=== PATIENT | female | born 1940 | race Caucasian/White ===

== ENCOUNTER → 2018-08-19 | Outpatient (CLI) | payer MEDICARE, OTHER, SELFPAY ==
[2018-08-19 14:37] LABS: Anion Gap 8 (5-15); BUN 24 mg/dL (7-18); BUN/Creat Ratio 29.6 RATIO (10-20); Calcium,Total 9.4 mg/dL (8.5-10.1); Chloride 102 mmol/L (98-107); Cholesterol 239 mg/dL (200); Creatinine, Serum 0.81 mg/dL (0.55-1.02); EST Glomerular Filtration Rate 72 mL/min (>60); Est Glom Filt Rate - Afr Amer 87 mL/min (>60); Glucose 91 mg/dL (74-106); High Density Lipoprotein 66 mg/dL; Sodium Level 140 mmol/L (136-145); Triglycerides 153 mg/dL; Very Low Density Lipoprotein 31 mg/dL (5-40)
== END | disposition home or self-care (01) ==
LOC: MFPLAB 11:13
PROVIDERS: Family Provider Family Medicine; PCP Family Medicine; Referring Provider Family Medicine; Visit Provider Family Medicine
DX: Z00.00 Encounter for general adult medical examination without abnormal findings (principal); E78.5 Hyperlipidemia, unspecified
CPT/HCPCS: 36415; 80048; 80061

== ENCOUNTER → 2018-11-02 | Outpatient (CLI) | payer MEDICARE, OTHER, SELFPAY ==
--- NOTE | 2018-11-02 09:37 | BI_ITS ---
MAMMOGRAPHY - BILATERAL SCREENING REASON FOR EXAM: Female, 78 years old. Routine annual screening examination. PERTINENT HISTORY: Non-contributory. TECHNIQUE: Digital bilateral breast socorro (3D mammographic acquisition) in the CC and MLO projections. 2-D mediolateral oblique (MLO) and craniocaudad (CC) views of both breasts were obtained. CAD: Full Field Digital Mammography with Computer Added Detection was performed. COMPARISON: Comparison is made with prior EXAMINATION dated October 31, 2017. FINDINGS: Breast Composition: The breasts are extremely dense, which lowers the sensitivity of mammography. There are no dominant masses or suspicious calcifications. A tissue clip marker is seen in the upper slightly lateral aspect of the right breast. Microcalcifications are seen in the anterior portion of the right breast. No other significant abnormalities are identified. There has been no significant change since the prior study. BI/SCREEN MAMM (CAD) W/SOCORRO BILAT IMPRESSION: Stable bilateral screening mammogram. Yearly follow-up mammogram recommended. (A) ASSESSMENT CATEGORY: BIRADS Category 2: Benign. A letter regarding these results will be sent to the patient by the facility within 30 days. Approximately 10% of breast cancers are not detected by mammography. A normal mammogram should not delay biopsy of a clinically suspicious abnormality. [id number] Electronically Signed: Dejuan Salvador, at 12:53 EDT , Service support ,
== END | disposition home or self-care (01) ==
LOC: OPBI 09:33
PROVIDERS: Family Provider Family Medicine; PCP Family Medicine; Referring Provider Family Medicine; Visit Provider Family Medicine
DX: Z12.31 Encounter for screening mammogram for malignant neoplasm of breast (principal)
CPT/HCPCS: 77063; 77067

== ENCOUNTER → 2019-11-23 10:23 | Outpatient (CLI) | payer MEDICARE, OTHER, SELFPAY ==
--- NOTE | 2019-11-23 10:26 | BI_ITS ---
MAMMOGRAPHY - BILATERAL SCREENING REASON FOR EXAM: Female, 79 years old. Routine annual screening examination. PERTINENT HISTORY: Non-contributory. TECHNIQUE: Digital bilateral breast socorro (3D mammographic acquisition) in the CC and MLO projections. 2-D mediolateral oblique (MLO) and craniocaudad (CC) views of both breasts were obtained. CAD: Full Field Digital Mammography with Computer Added Detection was performed. COMPARISON: Comparison is made with prior study dated 11/02/2018 and 09/10/2011. FINDINGS: Breast Composition: The breasts are extremely dense, which lowers the sensitivity of mammography. There are no dominant masses or suspicious calcifications. A tissue clip marker is once again seen in the upper slightly lateral aspect of the right breast. Stable macrocalcifications seen in the retroareolar region of the right breast. No other significant abnormalities are identified. There has been no significant change since the prior study. BI/SCREEN MAMM (CAD) W/SOCORRO BILAT IMPRESSION: Stable bilateral screening mammogram. Yearly follow-up mammogram recommended. (A) ASSESSMENT CATEGORY: BIRADS Category 2: Benign. A letter regarding these results will be sent to the patient by the facility within 30 days. Approximately 10% of breast cancers are not detected by mammography. A normal mammogram should not delay biopsy of a clinically suspicious abnormality. [id number] Electronically Signed: Dejuan Salvador, at 12:29 EDT , Service support ,
== END ==
PROVIDERS: PCP Family Medicine; Referring Provider Family Medicine; Visit Provider Family Medicine
DX: Z12.31 Encounter for screening mammogram for malignant neoplasm of breast (principal)
CPT/HCPCS: 77063; 77067

== ENCOUNTER → 2020-03-01 10:18 | Outpatient (CLI) | payer MEDICARE, OTHER, SELFPAY ==
[2020-03-01 13:00] LABS: Anion Gap 4 (5-15); BUN 24 mg/dL (7-18); BUN/Creat Ratio 25.3 RATIO (10-20); Calcium,Total 9.7 mg/dL (8.5-10.1); Chloride 106 mmol/L (98-107); Cholesterol 249 mg/dL (200); Creatinine, Serum 0.95 mg/dL (0.55-1.02); EST Glomerular Filtration Rate 60 mL/min (>60); Est Glom Filt Rate - Afr Amer 73 mL/min (>60); Glucose 99 mg/dL (74-106); High Density Lipoprotein 77 mg/dL; Potassium 3.9 mmol/L (3.5-5.1); Sodium Level 139 mmol/L (136-145); Triglycerides 136 mg/dL; Very Low Density Lipoprotein 27 mg/dL (5-40)
== END ==
PROVIDERS: PCP Family Medicine; Referring Provider Family Medicine; Visit Provider Family Medicine
DX: I10 Essential (primary) hypertension (principal)
CPT/HCPCS: 36415; 80048; 80061

== ENCOUNTER → 2020-05-31 11:40 | Outpatient (CLI) | payer MEDICARE, OTHER, SELFPAY ==
[2020-05-31 15:40] LABS: Anion Gap 5 (5-15); BUN 24 mg/dL (7-18); BUN/Creat Ratio 24.9 RATIO (10-20); Calcium,Total 10.5 mg/dL (8.5-10.1); Chloride 102 mmol/L (98-107); Cholesterol 237 mg/dL (200); Creatinine, Serum 0.96 mg/dL (0.55-1.02); EST Glomerular Filtration Rate 59 mL/min (>60); Est Glom Filt Rate - Afr Amer 71 mL/min (>60); Glucose 98 mg/dL (74-106); High Density Lipoprotein 74 mg/dL; Potassium 3.7 mmol/L (3.5-5.1); Sodium Level 139 mmol/L (136-145); Triglycerides 107 mg/dL; Very Low Density Lipoprotein 21 mg/dL (5-40)
== END ==
PROVIDERS: PCP Family Medicine; Referring Provider Family Medicine; Visit Provider Family Medicine
DX: I10 Essential (primary) hypertension (principal)
CPT/HCPCS: 36415; 80048; 80061

== ENCOUNTER 2020-08-03 14:57 | Outpatient (RCR) | payer MEDICARE, OTHER, SELFPAY | END 2020-09-26 23:59 | LOC: IMMUN 14:57 | PROVIDERS: PCP Family Medicine; Referring Provider Family Medicine; Visit Provider Family Medicine | DX: Z23 Encounter for immunization (principal) | CPT/HCPCS: 0001A; 0002A; 91300 ==

== ENCOUNTER → 2020-12-04 10:31 | Outpatient (CLI) | payer MEDICARE, OTHER, SELFPAY ==
--- NOTE | 2020-12-04 10:34 | BI_ITS ---
MAMMOGRAPHY - BILATERAL SCREENING REASON FOR EXAM: Female, 80 years old. Routine annual screening examination. PERTINENT HISTORY: Non-contributory. Remote right stereotactic breast biopsy. TECHNIQUE: Digital bilateral breast socorro (3D mammographic acquisition) in the CC and MLO projections. 2-D mediolateral oblique (MLO) and craniocaudad (CC) views of both breasts were obtained. CAD: Full Field Digital Mammography with Computer Added Detection was performed. COMPARISON: Comparison is made with prior study dated 11/23/2019 and 11/02/2018. FINDINGS: Breast Composition: The breasts are extremely dense, which lowers the sensitivity of mammography. There are no dominant masses or suspicious calcifications. A tissue clip marker is once again seen in the upper slightly lateral aspect of the right breast. Stable macrocalcifications in the retroareolar region of the No other significant abnormalities are identified. There has been no significant change since the prior study. BI/SCRN MAMM (CAD)W/SOCORRO BILAT IMPRESSION: Stable bilateral screening mammogram. Yearly follow-up mammogram recommended. (A) ASSESSMENT CATEGORY: BIRADS Category 2: Benign. A letter regarding these results will be sent to the patient by the facility within 30 days. Approximately 10% of breast cancers are not detected by mammography. A normal mammogram should not delay biopsy of a clinically suspicious abnormality. [id number] Electronically Signed: Dejuan Salvador MD at 11:31 EDT , Service support ,
== END ==
PROVIDERS: PCP Family Medicine; Referring Provider Family Medicine; Visit Provider Family Medicine
DX: Z12.31 Encounter for screening mammogram for malignant neoplasm of breast (principal)
CPT/HCPCS: 77063; 77067

== ENCOUNTER 2021-03-01 07:06 | Day surgery (SDC) | payer MEDICARE, OTHER, SELFPAY ==
[2021-03-01 07:32] VITALS: BP 129/79; PULSE 84; RESP 18; TEMP 36.3; O2SAT 99; BMI 20.5
[2021-03-01] MEDS: Lactated Ringers 1,000 ML 15 ML IV (07:54)
--- NOTE | 2021-03-01 08:30 | COLBX_PTH ---
PATIENT: CRISTHIAN RIVERO LOC: EN U#:[id number] AGE/SX: 80/F ROOM: RE03/01/[address]: Dr. Italo Matias MD : 1940 BED: DIS: 03/01/2021 SPEC #: [id number] RECD: 03/01/21 11:30 STATUS: JAX MARTINEZ #: [id number] MALIK: 03/01/21 08:[address]: Italo Matias DEPT: SURGICAL PATHOLOGY RECD BY: Mirna Kelly ENTERED: 03/01/21 12:42 SP TYPE: COLON BX OTHR DR: Dr. Sergio Mari MD Tissues: A - Cecum, NOS B - Cecum, NOS Procedures: Surgery Specimen Level IV HEADER OPERATION: Colonoscopy (MAC) PRE-OP DIAGNOSIS: Colon polyps TISSUE SUBMITTED: A ? Ileocecal polyp biopsy and snare, B ? Cecal polyp MICROSCOPIC DIAGNOSIS A. Ileocecal polyp, biopsy: A fragment of colonic mucosa, no pathologic diagnosis. B. Cecal polyp, biopsy: Tubular adenoma. JED:marco antonio 03/02/2021 MICROSCOPIC DESCRIPTION Slides are reviewed. GROSS DESCRIPTION A - Received in fixative is one container labeled with the patient's name and designated ileocecal polyp biopsy and snare. The specimen consists of one irregular fragment of light herman soft tissue that measures 0.2 x 0.2 x 0.1 cm. The specimen is totally submitted in one cassette. B - Received in fixative is one container labeled with the patient's name and designated cecal polyp. The specimen consists of a herman-pink polyp measuring 0.5 x 0.5 x 0.3 cm. / JED:marco antonio 03/01/21 TC:1 CPT: 26936 x2
--- NOTE | 2021-03-01 09:19 | PCM.HP.BLA ---
History and Physical Date of Admission: 03/01/21 Date of Service: 02/16/21 MR#:[id number]:[id number]: CRISTHIAN RIVERO #:[id number]:1940 Provider:Edwin Davidson/Sex: 80/F [facility] Vital Signs 02/16/21 14:38 Height 5 ft 2 in Weight: 113 lb BMI 20.6 BP 172/91 H Blood Pressure Location Rt brachial Position Sitting Respiration 18 Intake Visit Reasons: CSCOPE, REPEAT 3 YRS Chief Complaint: c-scope Fruit Checker Required: No Is patient in pain?: No Allergies Antihistamines - Alkylamine Allergy (Mild, Verified 02/16/21 14:39) Other codeine Allergy (Mild, Verified 02/16/21 14:39) Other Medications calcium carbonate 600 mg calcium (1,500 mg) tablet 600 mg PO DAILY 02/16/21 [History Confirmed 02/16/21] ergocalciferol (vitamin D2) 50 mcg (2,000 unit) capsule 50 mcg PO DAILY 02/16/21 [History Confirmed 02/16/21] lisinopril 20 mg-hydrochlorothiazide 25 mg tablet tablet PO 02/16/21 [History Confirmed 02/16/21] vitamins A,C,P-rhql-riygbn 14,320 unit-226 mg-200 unit capsule 1 cap PO BID 02/16/21 [History Confirmed 02/16/21] PFSH Medical History (Updated 02/16/21 @ 16:[address] Italo Matias MD) Heart murmur Hemorrhoids HTN (hypertension) Surgical History (Updated 02/16/21 @ 14:30 by Deja Quinones) H/O eye surgery S/P hysterectomy S/P right breast biopsy Family History (Updated 02/16/21 @ 14:30 by Deja Quinones) Father Colon cancer Social History (Updated 02/16/21 @ 14:30 by Deja Quinones) Smoking Status: Never smoker alcohol intake: never HPI HPI HPI: CRISTHIAN RIVERO, is a 80 F who presents to the office today for need to schedule surveillance colonoscopy secondary to both a personal history of colonic polyps and a family history of colon cancer in her father. Patient is referred from Dr. Mari with [facility] physicians. Patient has had prior colonoscopy. The results of prior scope performed by Dr. Wagoner of the [facility] on 02/26/2016 were: 2 colon polyps with a 7 mm sessile polyp in the cecum and a 15 mm semipedunculated polyp of the ascending colon?pathology was tubular adenoma. Recommended interval for follow-up was 3 years, however, patient has had a very busy season of life with her 's dementia progressing during this time. She does state she completed a Cologuard test 2 years ago which came back unremarkable. Patient has no personal history of colon cancer, inflammatory bowel disease, or diverticulitis. They describe their bowel habits as normal. They have approximately movement per day and spend minimal time on the toilet without significant straining. She has not noticed any blood with bowel movements. As above, patient does have a family history of colon cancer in her father who was diagnosed with late?stage colon cancer age of 86 and ultimately succumbed to this diagnosis. At age 80, patient is exceptionally active; exercising daily on a rowing machine and with regular walks. She also mows her own yard. She states that she has even considered returning to work. From a surgical perspective, patient's only abdominal surgery was a hysterectomy in 1980. ROS General General: No weight change, appetite, fatigue, colon cancer, breast cancer or weakness HEENT HEENT: Yes eye surgery; No difficulty swallowing, eye injury, swollen glands or hoarseness Endo Endocrine: No thyroid disease, diabetes mellitus, thyroid cancer, Hair loss, heat intolerance or cold intolerance Skin Skin: No rash or changing moles Breast Breast: No left breast lump, right breast lump, nipple discharge, breast pain, abnormal mammogram, abnormal US or breast enlargement Musc Musculoskeletal: No back problems, arthritis, rheumatoid arthritis, gout or joint pain Cardio Cardiovascular: Yes murmur and high blood pressure; No pacemaker, heart disease, atrial fibrillation, heart attack, heart stent, palpitations, shortness of breat with exertion or chest pain Psych Psychiatric: No depression, anxiety or hearing voices Resp Respiratory: No shortness of breath, No sleep apnea, No cough, No COPD, No asthma, No emphysema and No wheezing Gastro Gastrointestinal: No abdominal pain, No nausea or vomiting, No diarrhea, No constipation, No blood in stool, No acid reflux, Yes hemorrhoids, No ulcers, No gallbladder problem and No black,tarry stools Shreyas Hematologic: No blood thinners, No blood disorders, No bleeding, No anemia and No blood clots Neuro Neurologic: No system reviewed and no additional complaints, except as documented, No as per HPI, No abnormal gait, No abnormal hearing, No abnormal movements, No abnormal speech, No behavioral changes, No burning sensations, No confusion, No convulsions, No disequilibrium, No dizziness, No localized weakness, No frequent falls, No headache(s), No lack of coordination, No loss of vision, No memory loss, No numbness, No other visual disturbances, No radicular pain, No restless legs, No sensory deficit, No syncope, No tingling, No tremor(s), No weakness and No other Exam Const General: cooperative, healthy appearing, no acute distress and well developed Resp Effort & Inspection: normal respiratory effort Auscultation: clear to auscultation bilaterally, no rales, no rhonchi and no wheezes Cardio Rate: regular rate Rhythm: regular rhythm Heart Sounds: murmur systolic early and III/ GI Inspection: non-distended and no scars Palpation: soft, no hernias, no masses and nontender Assessment and Plan Assessment and Plan (1) Colon polyps: Status: Acute Qualifiers: Colon polyp type: adenomatous Colon location: ascending Qualified Code(s): D12.2 - Benign neoplasm of ascending colon Comment: An 80-year-old female who underwent surveillance colonoscopy 5 years ago with finding of colon polyps. She knows these were the only polyps of the bilirubin found during her history of colonoscopies. She was due, however, for 3-year follow-up of a 15 mm tubular adenoma of the ascending colon, but due to family circumstances she was unable to accomplish this. She describes no changes to her bowel habits, but is eager to update her surveillance exam. She states it is her plan to live 89 years old and currently exhibits no signs of slowing down. Therefore, I find it reasonable to proceed with colonoscopy as requested. Patient does have a 3/6 systolic murmur, but she states this has been present since she was very young and it is never limited her activity in any way. Plan - Dr. Italo Matias MD: Plan will be to complete colonoscopy on 03/01/2021 under local MAC. Pre-procedure prep discussed and paper instructions provided. Patient is also made aware that she will need to have a rear load truck driver with her the day of the procedure. (2) Family history of colon cancer in father: Status: Acute Comment: This is an octogenarian who has a family history of colon cancer in her father, who is also an octogenarian when diagnosed. Patient requesting surveillance colonoscopy for this history as well as her personal history of colon polyps. Plan - Dr. Italo Matias MD: Plan will be to complete colonoscopy on 03/01/2021 under local MAC. Pre-procedure prep discussed and paper instructions provided. Patient is also made aware that she will need to have a rear load truck driver with her the day of the procedure. I have re-examined the patient. There are no clinical changes since date of exam. Patient states that she continued her bowel prep all night long but the output has now been clear. She is eager to be under with the procedure. We will proceed with colonoscopy under local MAC as planned.
[2021-03-01 10:09] VITALS: BP 121/71; BP 129/79; PULSE 65; RESP 16; TEMP 36.2; O2SAT 98
[2021-03-01 10:15] VITALS: BP 129/79; BP 136/74; PULSE 64; RESP 16; O2SAT 98
--- NOTE | 2021-03-01 10:15 | OP.COLON_ITS ---
Patient Name: Cassie Ochoa Procedure Date: 03/01/2021 9:08 AM Date of : 1940 Age: 80 Procedure: Colonoscopy Indications: High risk colon cancer surveillance: Personal history of adenoma (10 mm or greater in size) Providers: Italo Matias MD Medicines: Monitored Anesthesia Care Patient Profile: Last Colonoscopy: 5 years ago. This is an 80 year old female. Complications: No immediate complications. Estimated blood loss: Minimal. Procedure: Pre-Anesthesia Assessment: - The anesthesia plan was to use moderate sedation/analgesia (conscious sedation). - The heart rate, respiratory rate, oxygen saturations, blood pressure, adequacy of pulmonary ventilation, and response to care were monitored throughout the procedure. After I obtained informed consent, the scope was passed under direct vision. Throughout the procedure, the patient's blood pressure, pulse, and oxygen saturations were monitored continuously. The Colonoscope was introduced through the anus and advanced to the cecum, identified by the ileocecal valve. The colonoscopy was performed without difficulty. The patient tolerated the procedure well. The quality of the bowel preparation was adequate to identify polyps. Scope In: 9:24:39 AM Scope Withdrawal Time 0 hours 25 minutes 23 seconds Scope Out: 10:04:51 AM Total Procedure Duration Time 0 hours 40 minutes 12 seconds Findings: Two semi-pedunculated polyps were found in the cecum. The polyps were 2 to 10 mm in size. These polyps were removed with a hot snare. Resection was complete, and retrieval was complete. Estimated blood loss was minimal. A few medium-mouthed diverticula were found in the distal sigmoid colon. No biopsies or other specimens were collected for this exam. Internal hemorrhoids were found during retroflexion. The hemorrhoids were Grade I (internal hemorrhoids that do not prolapse). No biopsies or other specimens were collected for this exam. Impression: - Two 2 to 10 mm polyps in the cecum, removed with a hot snare. Resected and retrieved. - Diverticulosis in the distal sigmoid colon. No specimens collected. - Internal hemorrhoids. No specimens collected. Recommendation: - Discharge patient to home (via wheelchair). - Resume regular diet today. - Continue present medications. - Await pathology results. - Repeat colonoscopy is recommended. The colonoscopy date will be determined after pathology results from today's exam become available for review. Procedure Code(s): --- Professional --- 14245, Colonoscopy, flexible; with removal of tumor(s), polyp(s), or other lesion(s) by snare technique Diagnosis Code(s): --- Professional --- Z86.010, Personal history of colonic polyps D12.0, Benign neoplasm of cecum K64.0, First degree hemorrhoids K57.30, Diverticulosis of large intestine without perforation or abscess without bleeding CPT copyright 2017 [employer]. All rights reserved. The codes documented in this report are preliminary and upon automotive wholesale parts advisor review may be revised to meet current compliance requirements. Italo Matias MD 03/01/2021 10:15:28 AM This report has been signed electronically. Number of Addenda: 0 Note Initiated On: 03/01/2021 9:08 AM
--- NOTE | 2021-03-01 10:16 | OP.CCLET_ITS ---
03/01/2021 Sergio Mari MD [address] [id number] Re : Colonoscopy procedure for Cassie Ochoa Dear Dr. Mari This procedure was performed on February. My impressions and recommendations are as follows: Impressions : - Two 2 to 10 mm polyps in the cecum, removed with a hot snare. Resected and retrieved. - Diverticulosis in the distal sigmoid colon. No specimens collected. - Internal hemorrhoids. No specimens collected. Recommendations : - Discharge patient to home (via wheelchair). - Resume regular diet today. - Continue present medications. - Await pathology results. - Repeat colonoscopy is recommended. The colonoscopy date will be determined after pathology results from today's exam become available for review. My findings are described in the full procedure note, which is enclosed. If I can be of further assistance, please feel free to contact me at Doctor phone number(s): , Work: . Sincerely, Iatlo Matias MD 03/01/2021 10:15:28 AM This report has been signed electronically.
[2021-03-01 10:23] VITALS: BP 129/79; BP 138/66; PULSE 56; RESP 16; O2SAT 99
[2021-03-01 10:24] VITALS: BP 129/79; BP 152/68; PULSE 62; RESP 16; TEMP 36.1; O2SAT 99
[2021-03-01 11:19] VITALS: BP 129/79
== END 2021-03-01 11:20 ==
LOC: EN 07:09 → AC 07:09
PROVIDERS: PCP Family Medicine; Referring Provider Family Medicine; Visit Provider Surgery
PROC: 0DJD8ZZ Inspection of Lower Intestinal Tract, Via Natural or Artificial Opening Endoscopic (ICD-10-PCS; CPT 45378; principal; 2021-03-01 08:25)
DX: Z12.11 Encounter for screening for malignant neoplasm of colon (principal); D12.0 Benign neoplasm of cecum; K57.30 Diverticulosis of large intestine without perforation or abscess without bleeding; K64.0 First degree hemorrhoids; I10 Essential (primary) hypertension; Z80.0 Family history of malignant neoplasm of digestive organs; Z86.010 Personal history of colon polyps; Z79.899 Other long term (current) drug therapy
CPT/HCPCS: 45385; 88305; J7120; J2405

== ENCOUNTER 2021-08-08 10:08 | Outpatient (CLI) | payer MEDICARE, OTHER, SELFPAY ==
[2021-08-08 12:11] LABS: ALB/GLOB Ratio 0.9 RATIO (0.9-2.4); AST(SGOT) 15 U/L (15-37); Alanine Aminotransfer ALT/SGPT 25 U/L (13-56); Albumin, Serum 3.6 g/dL (3.2-5.0); Alkaline Phosphatase 105 U/L (45-117); Anion Gap 7 (5-15); BUN 26 mg/dL (7-18); BUN/Creat Ratio 28.7 RATIO (10-20); Calcium,Total 10.9 mg/dL (8.5-10.1); Chloride 101 mmol/L (98-107); Cholesterol 242 mg/dL (200); Creatinine, Serum 0.91 mg/dL (0.55-1.02); EST Glomerular Filtration Rate 63 mL/min (>60); Est Glom Filt Rate - Afr Amer 76 mL/min (>60); Glucose 102 mg/dL (74-106); High Density Lipoprotein 80 mg/dL; Potassium 3.8 mmol/L (3.5-5.1); Protein, Total 7.6 g/dL (6.4-8.2); Sodium Level 136 mmol/L (136-145); Triglycerides 154 mg/dL; Very Low Density Lipoprotein 31 mg/dL (5-40)
== END 2021-08-08 23:59 | disposition home or self-care (01) ==
LOC: MFPLAB 10:12
PROVIDERS: PCP Family Medicine; Referring Provider Family Medicine; Visit Provider Family Medicine
DX: E78.5 Hyperlipidemia, unspecified (principal)
CPT/HCPCS: 36415; 80053; 80061

== ENCOUNTER → 2021-12-21 | Outpatient (CLI) | payer MEDICARE, OTHER, SELFPAY ==
--- NOTE | 2021-12-21 09:20 | BI_ITS ---
MAMMOGRAPHY - BILATERAL SCREENING REASON FOR EXAM: Female, 81 years old. Routine annual screening examination. PERTINENT HISTORY: Non-contributory. History of prior right medial breast biopsies. TECHNIQUE: Digital bilateral breast socorro (3D mammographic acquisition) in the CC and MLO projections. 2-D mediolateral oblique (MLO) and craniocaudad (CC) views of both breasts were obtained. CAD: Full Field Digital Mammography with Computer Added Detection was performed. COMPARISON: Comparison is made with prior study dated 12/04/2020 and 11/23/2019. FINDINGS: Breast Composition: The breasts are extremely dense, which lowers the sensitivity of mammography. I suspect a 1.8 cm x 2.7 cm well-defined nodule in the upper lateral aspect of the left breast. Correlation with ultrasound is recommended. A tissue clip marker is once again seen in the upper slightly lateral aspect of the right breast. Stable appearance of the calcifications bilaterally. No focal cluster is seen. No other significant abnormalities are identified. BI/SCRN MAMM (CAD)W/SOCORRO BILAT IMPRESSION: Findings suggest 1.8 cm x 2.7 cm well-defined nodule in the upper lateral aspect of the left breast. Correlation with ultrasound is recommended. ASSESSMENT CATEGORY: BIRADS Category 0: Incomplete. Need additional imaging evaluation. A letter regarding these results will be sent to the patient by the facility within 30 days. Approximately 10% of breast cancers are not detected by mammography. A normal mammogram should not delay biopsy of a clinically suspicious abnormality. [id number] Electronically Signed: Dejuan Salvador MD at 10:50 EDT ,
== END | disposition home or self-care (01) ==
LOC: OPBI 09:18
PROVIDERS: PCP Family Medicine; Visit Provider Family Medicine
DX: Z12.31 Encounter for screening mammogram for malignant neoplasm of breast (principal)
CPT/HCPCS: 77063; 77067

== ENCOUNTER → 2021-12-31 | Outpatient (CLI) | payer MEDICARE, OTHER, SELFPAY ==
--- NOTE | 2021-12-31 10:09 | US_ITS ---
STUDY: ULTRASOUND BREAST - LEFT REASON FOR EXAM: Female, 81 years old. Abnormal screening mammogram. TECHNIQUE: Axial and longitudinal images of the LEFT breast were performed with a high resolution ultrasound transducer. # OF IMAGES: 28 COMPARISON: Comparison is made with prior mammogram dated 12/21/2021. FINDINGS: LEFT Breast: The mammographic abnormality corresponds to a lobulated 1.6 cm x 2.1 cm x 1.2 cm hypoechoic nodule at the 2 o''clock position of the breast at 10 cm from nipple. Increased vascularity is seen. Biopsy recommended. US/Breast Limited Unilateral IMPRESSION: Lobulated hypoechoic nodule at the 2 o''clock position of the breast at 10 cm from the nipple. Increased vascularity. Biopsy recommended. ASSESSMENT CATEGORY: BIRADS Category 4: Suspicious - Biopsy Should Be Considered. A letter regarding these results will be sent to the patient by the facility within 30 days. Electronically Signed: Dejuan Salvador MD at 11:24 EDT ,
== END | disposition home or self-care (01) ==
LOC: OPUS 10:08
PROVIDERS: PCP Family Medicine; Visit Provider Family Medicine
DX: R92.8 Other abnormal and inconclusive findings on diagnostic imaging of breast (principal)
CPT/HCPCS: 76642

== ENCOUNTER → 2022-01-03 | Outpatient (CLI) | payer MEDICARE, OTHER, SELFPAY ==
--- NOTE | 2022-01-03 | BRBX_PTH ---
PATIENT: CRISTHIAN RIVERO LOC: [facility] U#:[id number] AGE/SX: 81/F ROOM: RE01/03/[address]: Dr. Lali Gong MD : 1940 BED: DIS: 01/03/2022 SPEC #: [id number] RECD: 01/03/22 13:08 STATUS: JAX REWilliam #: [id number] MALIK: 01/03/22 00:[address]: Lali Gong DEPT: SURGICAL PATHOLOGY RECD BY: Bo Caicedo ENTERED: 01/03/22 13:09 SP TYPE: BREAST BX OTHR DR: Dr. Sergio Mari MD Tissues: A - Left breast, NOS B - Axillary lymph node, NOS Procedures: Surgery Specimen Level IV HEADER OPERATION: Left breast biopsy PRE-OP DIAGNOSIS: Left breast mass TISSUE SUBMITTED: A ? Left breast tissue 2 o?clock, 10 cm from nipple, B ? Left axillary node MICROSCOPIC DIAGNOSIS A. Left breast at 2 o?clock, needle core biopsy: Collagenized tissue. Rare benign ductal epithelium is present. B. Left axillary lymph node, core biopsy: Metastatic carcinoma consistent with breast primary. See comment. AM:marco antonio 01/04/2022 COMMENT B. Immunohistochemistry ([id number]) supports the above diagnosis and is consistent with metastatic ductal carcinoma of breast origin. Case has been reviewed in consultation with Dr. Fernandez who concurs with the above diagnosis. IDC:JED MICROSCOPIC DESCRIPTION Slides are reviewed. GROSS DESCRIPTION A - Received in fixative is one container labeled with the patient's name and designated left breast. The specimen consists of multiple elongated fragments of herman-yellow fibroadipose tissue that in aggregate measure 1.5 x 0.4 x 0.1 cm. The entire specimen is submitted in one cassette. B - Received in fixative is one container labeled with the patient's name and designated left axillary node. The specimen consists of multiple elongated fragments of adipose tissue that in aggregate measure 1.5 x 0.3 x 0.1 cm. The entire specimen is submitted in one cassette. / JED:marco antonio 01/03/2022 TC:0 CPT: 45798 x2
--- NOTE | 2022-01-03 | IMM_PTH ---
PATIENT: CRISTHIAN RIVERO LOC: [facility] U#:[id number] AGE/SX: 81/F ROOM: RE01/03/[address]: Dr. Lali Gong MD : 1940 BED: DIS: 01/03/2022 SPEC #: [id number] RECD: 01/04/22 13:36 STATUS: JAX REQ #: [id number] MALIK: 01/03/22 00:[address]: Lali Gong DEPT: IMMUNOHISTOCHEMISTRY RECD BY: Marium Bowles ENTERED: 01/04/22 13:37 SP TYPE: IMMUNO OTHR DR: Dr. Sergio Mari MD Tissues: B - Axillary lymph node, NOS Procedures: CK20 (add) CK7 (add) CK8 (add) E-CAD (add) HER2 ELTON (add) KI-67 (add) MAMM (add) P53 (add) MS (add) Vimentin (add) Pankeratin (add) GATA3 (add) ER (initial) S-100 (add) PHYSICIAN & [address] [address] SPECIMEN INFORMATION: Tissue Source: B ? Left axillary node Clinical Info: Left breast mass Specimen Number: [id number] CPT code: 52486, 79651 x13 METHODOLOGY: Deparaffinized sections of prefer/formalin-fixed tissue or PAP/DQ stained slides are incubated with monoclonal/polyclonal antibodies/oligonucleotide probes. Localization is made via biotin free immunoperoxidase method. Appropriate controls are performed and reacted as expected. Results on target cell population are indicated in the following table: RESULTS: ANTIBODY / CLONE RESULT Block B E-Cad (ECH-6) positive Mammaglobin (31A5) positive GATA3 (L50-823) positive AE1-3 (AE1/AE3/PCK26) positive CK7 (OV-TL12/30) positive CK8 (27yypgM25) positive CK20 (KS20.8) negative Vimentin (V9) negative S-100 (4C4.9) negative P53 (DO-7) negative Ki-67 (30-9) positive, 75% MORPHOMETRIC ANALYSIS ER (clone 6F11) <1%, dim staining MS (clone 16/1E2) 0% Her-2Neu (clone CB11) 2-3+ The prognostic test for HER2 is performed on formalin-fixed paraffin embedded tissue. A 3+ (positive) staining pattern is defined as intense, homogeneous, complete, circumferential membranous staining in >10% of contiguous tumor cells. A similar weak (2+) staining pattern is interpreted as equivocal. KAREN follow-up testing is recommended for all equivocal cases. Positivity/negativity for ER/MS is reported if > or < 1% of the tumor cells are immuno- reactive, respectively. The ASCO/CAP criteria is used for scoring. Reference: Journal of Clinical Oncology, 2013; 31:9375-5300 & 2010; 16:1054-7477. Duration of fixation: 8 Hrs; Sample Adequate: Yes. These assays have not been validated on decalcified tissues. Results should be interpreted with caution given the likelihood of false negativity on decalcified specimens. These tests were developed and their performance characteristics determined by [facility]. They may not have been cleared or approved by the U.S. Food and Drug Administration. The FDA has determined that such clearance or approval is not necessary. The above immunohistochemical/dualISH markers are ordered and reviewed by the Pathologist. INTERPRETATION: B. Left axillary node, biopsy: Consistent with metastatic ductal carcinoma of breast origin. Positive for estrogen receptors (favorable prognostic indicator). Negative for progesterone receptors (unfavorable prognostic indicator). Positive for overexpression of IES5jlo. AM:marco antonio 01/07/2022
== END | disposition home or self-care (01) ==
LOC: LABSPEC 11:35
PROVIDERS: PCP Family Medicine; Referring Provider Surgery; Visit Provider Surgery
DX: N63.20 Unspecified lump in the left breast, unspecified quadrant (principal)
CPT/HCPCS: 88305; 88341; 88342

== ENCOUNTER → 2022-01-16 | Outpatient (CLI) | payer MEDICARE, OTHER, SELFPAY ==
--- NOTE | 2022-01-16 | IMM_PTH ---
PATIENT: CRISTHIAN RIVERO LOC: [facility] U#:[id number] AGE/SX: 81/F ROOM: RE01/16/[address]: Dr. Chris Buitrago MD : 1940 BED: DIS: 01/16/2022 SPEC #: [id number] RECD: 01/18/22 12:41 STATUS: JAX REQ #: [id number] MALIK: 01/16/22 00:[address]: Chris Buitrago DEPT: IMMUNOHISTOCHEMISTRY RECD BY: Marium Bowles ENTERED: 01/18/22 12:43 SP TYPE: IMMUNO OTHR DR: Dr. Sergio Mari MD Tissues: Left breast, NOS Procedures: CALPONIN-1 (add) CK5-6 (add) CK8 (add) E-CAD (add) HER2 ELTON (add) KI-67 (add) P53 (add) CT (add) P40 (add) ER (initial) PHYSICIAN & INSTITUTION [address] [address] SPECIMEN INFORMATION: Tissue Source: Left breast Clinical Info: Left breast mass Specimen Number: [id number] CPT code: 70296, 59823 x6, 65073 x3 METHODOLOGY: Deparaffinized sections of prefer/formalin-fixed tissue or PAP/DQ stained slides are incubated with monoclonal/polyclonal antibodies/oligonucleotide probes. Localization is made via biotin free immunoperoxidase method. Appropriate controls are performed and reacted as expected. Results on target cell population are indicated in the following table: RESULTS: ANTIBODY / CLONE RESULT E-Cad (ECH-6) positive CK8 (16mqwzB77) positive Calponin-1 (BV344X) negative CK5-6 (D5 & 1684) positive, focal P40 (BC28) negative P53 (DO-7) negative Ki-67 (30-9) positive, moderate (~60%) MORPHOMETRIC ANALYSIS ER (clone 6F11) 0% CT (clone 16/1E2) 0% Her-2Neu (clone CB11) 3+ The prognostic test for HER2 is performed on formalin-fixed paraffin embedded tissue. A 3+ (positive) staining pattern is defined as intense, homogeneous, complete, circumferential membranous staining in >10% of contiguous tumor cells. A similar weak (2+) staining pattern is interpreted as equivocal. KAREN follow-up testing is recommended for all equivocal cases. Positivity/negativity for ER/CT is reported if > or < 1% of the tumor cells are immuno- reactive, respectively. The ASCO/CAP criteria is used for scoring. Reference: Journal of Clinical Oncology, 2013; 31:8278-4298 & 2010; 16:0099-4421. Duration of fixation: 29.5 Hrs; Sample Adequate: Yes. These assays have not been validated on decalcified tissues. Results should be interpreted with caution given the likelihood of false negativity on decalcified specimens. These tests were developed and their performance characteristics determined by [facility]. They may not have been cleared or approved by the U.S. Food and Drug Administration. The FDA has determined that such clearance or approval is not necessary. The above immunohistochemical/dualISH markers are ordered and reviewed by the Pathologist. INTERPRETATION: Left breast mass, core biopsy: Invasive ductal carcinoma, nuclear grade 2-3/3. Negative for estrogen receptors (unfavorable prognostic indicator). Negative for progesterone receptors (unfavorable prognostic indicator). Positive for overexpression of BSI8obj. SJ:marco antonio 01/21/2022
--- NOTE | 2022-01-16 14:40 | BRBX_PTH ---
PATIENT: CRISTHIAN RIVERO LOC: [facility] U#:[id number] AGE/SX: 81/F ROOM: RE01/16/[address]: Dr. Chris Buitrago MD : 1940 BED: DIS: 01/16/2022 SPEC #: [id number] RECD: 01/16/22 15:57 STATUS: JAX REWilliam #: [id number] MALIK: 01/16/22 14:[address]: Chris Buitrago DEPT: SURGICAL PATHOLOGY RECD BY: Mirna Kelly ENTERED: 01/17/22 08:17 SP TYPE: BREAST BX OTHR DR: Dr. Sergio Mari MD Tissues: Left breast, NOS Procedures: Surgery Specimen Level IV HEADER OPERATION: Left breast biopsy PRE-OP DIAGNOSIS: Left breast mass TISSUE SUBMITTED: Left breast tissue MICROSCOPIC DIAGNOSIS Left breast mass, core biopsy: Invasive ductal carcinoma, nuclear grade 2-3/3 (0.9 cm in greatest length). See comment. JED:marco antonio 01/18/2022 COMMENT Immunohistochemistry ([id number]) supports the above diagnosis. ER/MS/Vhj0fkj studies are being performed on sections of tumor and the results from this study will be reported separately ([id number]). Please make reference to previous specimen ([id number]), left breast at 2 o?clock, needle core biopsy with diagnosis of ?collagenized tissue? and left axillary lymph node, core biopsy with diagnosis of ?metastatic carcinoma consistent with breast primary.? Case has been reviewed in consultation with Dr. Carty who concurs with the above diagnosis. IDC:AM MICROSCOPIC DESCRIPTION Slides are reviewed. GROSS DESCRIPTION Received in fixative is one container labeled with the patient's name and designated left breast. The specimen consists of multiple elongated fragments of herman-yellow fibroadipose tissue that in aggregate measure 1.5 x 0.5 x 0.1 cm. The entire specimen is submitted in one cassette. / JED:marco antonio 01/17/2022 TC:0 CPT: 35562
== END | disposition home or self-care (01) ==
LOC: LABSPEC 16:02
PROVIDERS: PCP Family Medicine; Referring Provider Surgery; Visit Provider Surgery
DX: N63.20 Unspecified lump in the left breast, unspecified quadrant (principal)
CPT/HCPCS: 88305; 88341; 88342

== ENCOUNTER → 2022-01-23 | Outpatient (CLI) | payer MEDICARE, OTHER, SELFPAY ==
--- NOTE | 2022-01-23 09:23 | MRI_ITS ---
STUDY: BILATERAL BREAST MR WITHOUT AND WITH CONTRAST REASON FOR EXAM: Female, 81 years old. Evaluation of left breast cancer. History of right breast biopsies. TECHNIQUE: Multi-sequence multi-echo imaging of both breasts was performed with a dedicated breast coil. T1-weighted and T2-weighted images were performed before the administration of contrast. T1-weighted images were also performed after the intravenous administration of 10 cc of Clariscan contrast. COMPARISON: Bilateral mammogram dated 12/21/2021, unilateral left mammogram dated 12/31/2021 and left breast ultrasound dated 12/31/2021. FINDINGS: RIGHT BREAST: The breast tissue is heterogeneously dense with no background enhancement. There are no abnormal enhancing masses or areas of non-mass enhancement in the right breast. LEFT BREAST: The breast tissue is heterogeneously dense with no background enhancement. Ovoid enhancing mass at the 2 o''clock position of the left breast 10 cm from the nipple corresponding to the ultrasonographic findings. Slight increased vascularity in the lateral aspect of the left breast. There are no enlarged or abnormal lymph nodes. There is no abnormality in the visualized regions of the chest or liver. MRI/Breast Bilateral W/O and W IMPRESSION: Solitary enhancing lobular slightly irregular mass in the left breast corresponding to the ultrasonographic findings. No adenopathy. CATEGORY: BIRADS Category 6: Known Biopsy-Proven Malignancy - Appropriate Action Should Be Taken. A letter regarding these results will be sent to the patient by the facility within 30 days. Electronically Signed: Ciaran Merritt, at 14:00 EDT ,
[2022-01-23 10:15] LABS: CREATININE FINGERSTICK < 0.9 mg/dL (0.55-1.02); EGFR FINGERSTICK > 60.0000 mL/min (>60)
== END | disposition home or self-care (01) ==
LOC: MRI 09:23
PROVIDERS: PCP Family Medicine; Visit Provider Surgery
DX: C50.912 Malignant neoplasm of unspecified site of left female breast (principal)
CPT/HCPCS: 77049; A9575; A4216; C8908

== ENCOUNTER → 2022-02-01 | Outpatient (CLI) | payer MEDICARE, OTHER, SELFPAY ==
--- NOTE | 2022-02-01 06:31 | CT_ITS ---
STUDY: CT CHEST T ABDOMEN WITH CONTRAST REASON FOR EXAM: Female, 81 years old. STAGING/IV ONLY. Left breast lump. RADIATION DOSAGE (If Supplied By Facility): CTDIvol = ( ) mGy, DLP = ( ) mGycm TECHNIQUE: Transaxial imaging was performed following intravenous administration of IV 100mL Isovue-300. Individualized dose optimization techniques were used for this CT. COMPARISON: No relevant priors. FINDINGS: CHEST There is a 1.2 cm x 1.8 cm soft tissue nodule in the upper lateral aspect of the left breast. A tissue clip marker is seen within it. There is also some calcification in the right breast. There is an 8.4 mm linear nodular density which abuts the pleural surface in the lateral posterior aspect of the right lung apex. This may represent a focal scar. Incidental note is made of an azygos lobe. There is no demonstrated pleural abnormality. There are calcifications of the coronary arteries. Normal mediastinum. Normal hilar regions. Normal unenhanced pulmonary arteries. There is atherosclerotic calcification of the aortic arch with tortuosity and elongation of the aortic arch and descending thoracic aorta. There are multi-level degenerative changes of the thoracic spine. Increased kyphosis. There is no demonstrated abnormality of the visualized upper abdomen. ABDOMEN Subcentimeter cyst in the posterior dome of the right lobe of the liver. Normal gallbladder and extrahepatic biliary system. Normal spleen. Normal pancreas. Normal bilateral adrenal glands. 8.6 mm cyst in the lower pole of the right kidney. Normal left kidney. There is a small hiatal hernia. Normal small intestine. Normal colon. The appendix is visualized and appears normal. There is diffuse atherosclerotic calcification of the abdominal aorta, without a demonstrated aneurysm. Normal inferior vena cava. Normal retroperitoneum. Normal abdominal wall. There are diffuse degenerative changes of the visualized lumbar spine. Dextroscoliosis. Grade 1 anterolisthesis of L4 on L5 with facet joint osteoarthritis. CT/CT Chest AND Abd W/ Contrast IMPRESSION: Left breast nodule. 8.4 mm linear nodular density in the posterolateral aspect of the right lung apex. This most likely represents a focal scar. Electronically Signed: Dejuan Salvador MD at 15:02 EDT ,
[2022-02-01 07:05] LABS: CREATININE FINGERSTICK < 0.9 mg/dL (0.55-1.02); EGFR FINGERSTICK > 60.0000 mL/min (>60)
== END | disposition home or self-care (01) ==
LOC: CT 06:28
PROVIDERS: PCP Family Medicine; Referring Provider Internal Medicine Medical Oncology; Visit Provider Internal Medicine Medical Oncology
DX: C77.3 Secondary and unspecified malignant neoplasm of axilla and upper limb lymph nodes (principal); C50.912 Malignant neoplasm of unspecified site of left female breast
CPT/HCPCS: 71260; 74160; Q9967

== ENCOUNTER → 2022-02-04 | Outpatient (CLI) | payer MEDICARE, OTHER, SELFPAY ==
--- NOTE | 2022-02-04 08:14 | ECHODONC_ITS ---
Reason For Study: Pre Chemo Procedure This was a 2D Doppler, Color Flow transthoracic echocardiogram. Myocardial strain analysis was performed in this exam to aid in the assessment of cardiac function. The study was technically difficult. Exam performed in department. Left Ventricle Normal LV size. Left ventricular systolic function is normal. The estimated ejection fraction is 65 %. The global longitudinal strain = -15% (borderline). Diastolic function is indeterminate. No regional wall motion abnormalities noted. Right Ventricle Normal RV size. Normal systolic function. Atria Normal left atrium. Normal right atrium. No doppler evidence for ASD. Mitral Valve There is no mitral annular calcification. Mild diffuse mitral valve thickening. Trivial mitral valve insufficiency. Tricuspid Valve Normal tricuspid valve. Trivial tricuspid valve insufficiency. Unable to estimate RV systolic pressure due to insufficient tricuspid regurgitant envelope. Aortic Valve Trisinus/trileaflet aortic valve. Mild diffuse aortic valve thickening. Moderate focal aortic valve calcification. 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 Pulmonic Valve The pulmonic valve is not well visualized. Great Vessels Normal sized aortic root. Calcified aortic root. Pericardium/Pleural No pericardial effusion. MMode/2D Measurements & Calculations LVIDd: 3.9 cm IVSd: 1.1 cm LVOT diam: 2.0 cm LVIDs: 2.3 cm LVPWd: 1.1 cm LVOT area: 3.1 cm2 RVDd: 2.7 cm FS: 42.2 % Ao root diam: 3.7 cm LAV(MOD-sp4): 30.6 ml Aortic Valve Planimetry: 0.68 cm2 ACS: 0.62 cm LA dimension: 3.3 cm LA A4 area: 13.1 cm2 RA A4 area: 11.7 cm2 Time Measurements MV dec time: 0.25 sec Doppler Measurements & Calculations MV E max guillermo: 59.2 cm/sec Lat Peak E' Guillermo: 6.0 cm/sec Med Peak E' Guillermo: 3.9 cm/sec MV A max guillermo: 112.0 cm/sec E/E' lat: 9.8 E/E' med: 15.2 MV E/A: 0.53 MV V2 max: 121.2 cm/sec MV P1/2t max guillermo: 75.2 cm/sec Ao V2 max: 303.4 cm/sec MV max P.9 mmHg MV P1/2t: 75.9 msec Ao max P.8 mmHg MV V2 mean: 57.8 cm/sec Ao V2 mean: 200.9 cm/sec MV mean P.6 mmHg MV dec slope: 290.2 cm/sec2 Ao mean P.5 mmHg MV V2 VTI: 25.1 cm MVA(P1/2t): 2.9 cm2 Ao V2 VTI: 60.8 cm MVA(VTI): 1.5 cm2 PEACE(I,D): 0.64 cm2 PEACE(V,D): 0.66 cm2 LV V1 max: 64.4 cm/sec SV(LVOT): 38.7 ml PA V2 max: 88.5 cm/sec LV V1 max P.7 mmHg LV V1 mean P.88 mmHg LV V1 mean: 43.2 cm/sec LV V1 VTI: 12.5 cm ECHO/ONC Echo Complete Interpretation Summary Left ventricular systolic function is normal. The estimated ejection fraction is 65 %. The global longitudinal strain = -15% (borderline). Mild diffuse mitral valve thickening. Trivial mitral valve insufficiency. Trivial tricuspid valve insufficiency. 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 Calcified aortic root. Unable to estimate RV systolic pressure due to insufficient tricuspid regurgita nt envelope. Diastolic function is indeterminate. Ordering Physician: Sang Smith Referring Physician: Sergio Mari Performed By: Andrzej Doshi RCS
== END | disposition home or self-care (01) ==
LOC: CVS 08:13
PROVIDERS: PCP Family Medicine; Referring Provider Internal Medicine Medical Oncology; Visit Provider Internal Medicine Medical Oncology
DX: Z01.818 Encounter for other preprocedural examination (principal); C77.3 Secondary and unspecified malignant neoplasm of axilla and upper limb lymph nodes; C50.912 Malignant neoplasm of unspecified site of left female breast
CPT/HCPCS: 93306; 93356

== ENCOUNTER 2022-02-07 10:28 | Day surgery (SDC) | payer MEDICARE, OTHER, SELFPAY ==
--- NOTE | 2022-02-05 12:21 | EKG12_ITS ---
Test Reason : PREOP Blood Pressure : / mmHG Vent. Rate : 083 BPM Atrial Rate : 083 BPM P-R Int : 114 ms QRS Dur : 086 ms QT Int : 380 ms P-R-T Axes : 069 063 062 degrees QTc Int : 446 ms Normal sinus rhythm Biatrial enlargement Left ventricular hypertrophy Abnormal ECG Confirmed by MINA PAYNE, PHANI ([id number]), city editor AN KRUEGER ([id number]) on 02/06/2022 6:45:14 AM Referred By: Chris Buitrago Confirmed By:PHANI ENRIQUEZ MD
[2022-02-05 12:31] LABS: Hematocrit 39.7 % (37-47); Hemoglobin 12.9 g/dL (12.0-15.0); Mean Corp Hgb Conc 32.5 g/dL (32-36); Mean Corpuscular Hgb 31.2 pg (27.0-32.0); Mean Corpuscular Volume 95.9 fL (81-99); Mean Platelet Vol. 9.8 fl (6.2-12.0); Platelet Count 339 K/mm3 (150-450); RBC Distribution Width CV 13.1 % (11.6-14.6); RBC Distribution Width SD 46.4 fl (35.1-43.9); Red Blood Count 4.14 M/mm3 (4.2-5.4); White Blood Count 9.8 K/mm3 (4.4-11.0)
[2022-02-05 12:39] LABS: Anion Gap 8 (5-15); BUN 27 mg/dL (7-18); BUN/Creat Ratio 28.6 RATIO (10-20); Calcium,Total 10.4 mg/dL (8.5-10.1); Chloride 102 mmol/L (98-107); Creatinine, Serum 0.94 mg/dL (0.55-1.02); EST Glomerular Filtration Rate 60 mL/min (>60); Est Glom Filt Rate - Afr Amer 73 mL/min (>60); Glucose 90 mg/dL (74-106); Potassium 3.4 mmol/L (3.5-5.1); Sodium Level 141 mmol/L (136-145)
[2022-02-07] VITALS (7 sets, daily range): BP systolic 133–159; BP diastolic 66–81; PULSE 60–78; RESP 15–16; TEMP 36.1–36.8; O2SAT 98–100; BMI 19.8
--- NOTE | 2022-02-07 10:46 | HP.PCM_ITS ---
History and Physical Date of Admission: 02/07/[address] Chris Buitrago MD on 01/31/22 at 0625 Intake Chief Complaint: discuss surgery Allergies Antihistamines - Alkylamine Allergy (Mild, Verified 01/30/22 15:22) Othercodeine Allergy (Mild, Verified 01/30/22 15:22) Other Medications calcium carbonate 600 mg calcium (1,500 mg) tablet (Calcium) 600 mg PO DAILY 02/16/21 [History Confirmed 01/30/22] ergocalciferol (vitamin D2) 50 mcg (2,000 unit) capsule 50 mcg PO DAILY 02/16/21 [History Confirmed 01/30/22] lisinopril 20 mg-hydrochlorothiazide 25 mg tablet 1 tablet PO DAILY 02/16/21 [History Confirmed 01/30/22] vitamins A,C,A-miof-kyjazm 14,320 unit-226 mg-200 unit capsule (PreserVision AREDS) 1 cap PO BID 02/16/21 [History Confirmed 01/30/22] Assessment and Plan Assessment and Plan (1) Breast cancer, left: ?Status:?Acute ?Comment: Left breast cancer- clinical T2 cNx, ER negative, Her2 3+. Discussed aggressive nature, need for staging, surgery vs kalpesh-adjuvant therapy vs adjuvant therapy. She wants surgery as soon as possible. (2) Breast cancer metastasized to axillary lymph node: ?Status:?Acute (3) Axillary lymphadenopathy: ?Status:?Acute ?Comment: left Plan I have had an opportunity discussed the patient's ongoing management with Dr. Sang Smith.? The patient appears that she wants every attempt at longevity.? With that in mind it would appear best to offer her neoadjuvant chemotherapy.? Dr Smith has requested placement of a port to facilitate.? We will notify the patient of these recommendations and as noted she does have an additional follow-up appointment with Dr. Sang Smith in the very near future. Chris Buitrago M.D., F.A.C.S. 01/31/22 0625 <Electronically signed by Chris Buitrago MD> Date Chris Buitrago MD cc:? Dr. Sang Smith MD; Dr. Sergio Mari MD ~* Signed Intake Vital Signs ? 01/03/2209:29 Height 5 ft 3 in Intake Visit Reasons:?discuss surgery Chief Complaint: discuss surgery Staff Nurse Midwife Required: No Is patient in pain?: No Allergies Antihistamines - Alkylamine Allergy (Mild, Verified 01/30/22 15:22) Othercodeine Allergy (Mild, Verified 01/30/22 15:22) Other Medications calcium carbonate 600 mg calcium (1,500 mg) tablet (Calcium) 600 mg PO DAILY 02/16/21 [History Confirmed 01/30/22] ergocalciferol (vitamin D2) 50 mcg (2,000 unit) capsule 50 mcg PO DAILY 02/16/21 [History Confirmed 01/30/22] lisinopril 20 mg-hydrochlorothiazide 25 mg tablet 1 tablet PO DAILY 02/16/21 [ History Confirmed 01/30/22] vitamins A,C,O-wxdm-xqxgbf 14,320 unit-226 mg-200 unit capsule (PreserVision AREDS) 1 cap PO BID 02/16/21 [History Confirmed 01/30/22] PFSH Medical History? Cancer Heart murmur Heartburn Hemorrhoids HTN (hypertension) Hypertension Non-smoker Wears glasses Surgical History? H/O eye surgery Hx of colonoscopy S/P hysterectomy S/P right breast biopsy Family History? Father Colon cancer Social History? Smoking Status:? Never smoker alcohol intake:? never HPI HPI HPI: 81-year-old female returns to discuss biopsy-proven left breast cancer with biopsy-proven metastatic disease of the left axilla.? She has been seen by Dr. Sang Smith and I certainly appreciated his assistance.? He did discuss with her neoadjuvant therapy residual evident therapy versus surgical therapy.? The patient felt that she wanted to proceed with definitive surgery first and not pursue the neoadjuvant chemotherapy Breast MRI performed January 23, 2022 only demonstrates the left breast mass and does not demonstrate any metastatic disease to the left axilla which is palpable and has been biopsy-proven STUDY: ? BILATERAL BREAST MR WITHOUT AND WITH CONTRAST REASON FOR EXAM: ? Female, 81 years old. ? Evaluation of left breast cancer.? History of right breast biopsies. TECHNIQUE: ? Multi-sequence multi-echo imaging of both breasts was performed with a dedicated breast coil.? T1-weighted and T2-weighted images were performed before the administration of contrast.? T1-weighted images were also performed after the intravenous administration of 10 cc of Clariscan contrast. COMPARISON:? ? Bilateral mammogram dated 12/21/2021, unilateral left mammogram dated 12/31/2021 and left breast ultrasound dated 12/31/2021. FINDINGS: RIGHT BREAST: The breast tissue is heterogeneously dense with no background enhancement. There are no abnormal enhancing masses or areas of non-mass enhancement in the right breast. LEFT BREAST: The breast tissue is heterogeneously dense with no background enhancement. Ovoid enhancing mass at the 2 o''clock position of the left breast 10 cm from the nipple corresponding to the ultrasonographic findings.? Slight increased vascularity in the lateral aspect of the left breast. There are no enlarged or abnormal lymph nodes.? There is no abnormality in the visualized regions of the chest or liver. MRI/Breast Bilateral W/O and W IMPRESSION: Solitary enhancing lobular slightly irregular mass in the left breast corresponding to the ultrasonographic findings. ? No adenopathy. ? ? CATEGORY: BIRADS Category 6:? Known Biopsy-Proven Malignancy - Appropriate Action Should Be Taken.? A letter regarding these results will be sent to the patient by the facility within 30 days. ? Electronically Signed: Ciaran Merritt, at 14:00 EDT , My previous notes reflect the following Chief Complaint: Left breast birads 4 Allergies Antihistamines - Alkylamine Allergy (Mild, Verified 01/16/22 14:20) Othercodeine Allergy (Mild, Verified 01/16/22 14:20) Other Medications calcium carbonate 600 mg calcium (1,500 mg) tablet (Calcium) 600 mg PO DAILY 02/16/21 [History Confirmed 01/16/22] ergocalciferol (vitamin D2) 50 mcg (2,000 unit) capsule 50 mcg PO DAILY 02/16/21 [History Confirmed 01/16/22] lisinopril 20 mg-hydrochlorothiazide 25 mg tablet 1 tablet PO DAILY 02/16/21 [History Confirmed 01/16/22] vitamins A,C,Q-xnrl-bicclu 14,320 unit-226 mg-200 unit capsule (PreserVision AREDS) 1 cap PO BID 02/16/21 [History Confirmed 01/16/22] Assessment and Plan Assessment and Plan (1) Axillary lymphadenopathy: ?Status:?Acute ?Comment: left (2) Breast mass, left: ?Status:?Acute ? ? ? Orders: Orders Breast Bilateral W/O and W Today? C50.919 - Malignant neoplasm of unspecified site of unspecified female breast ? Plan Copy: Dr. Sang Buitrago M.D., F.A.C.S. I have re-examined the patient. There are no clinical changes since date of exam. Chris Buitrago M.D., F.A.C.S.
--- NOTE | 2022-02-07 10:46 | DCINST_ITS ---
Discharge Instructions Procedure Port-A-Cath Diet Discharge Diet: No restrictions (Pain medication may cause nausea. You should typically eat light foods as you take your pain medication.) Activity Discharge Activity: Return to Normal Activity and May Shower (Leave the bandage on for 2-3 days. When you remove the bandage, leave the steri-strips intact until they fall off.) Additional Activity Instructions:: May not drive, work with heavy equipment, or sign legal documents for [address]. [address] if you are no longer taking narcotic pain medications. You may drive when you are no longer taking pain medications. Dressing / Incision Additional Dressing/Incision Instructions:: Leave the bandage on for 2-3 days. When you remove the bandage, leave the steri-strips intact until they fall off. Follow Up Care Please Follow Up With: Chris Buitrago MD When: Office follow-up is pending your concerns. There are no sutures that need to be removed. Your port may be accessed by hematology oncology to initiate your treatment. Further office follow-up can be for further consultation regarding definitive surgery once you have completed your hematology oncology care. [phone] Test Results: Test results from this visit will be discussed in further detail at your follow- up appointment, if applicable. Discharge Plan Admission Attending Provider: Chris Buitrago Primary Care Provider: Sergio Mari Discharge Orders/Prescriptions Prescriptions: No Action lisinopril-hydrochlorothiazide 20-25 mg tablet 1 tablet PO DAILY calcium carbonate [Calcium 600] 600 mg calcium (1,500 mg) tablet 600 mg PO DAILY ergocalciferol (vitamin D2) 50 mcg (2,000 unit) capsule 50 mcg PO DAILY PreserVision AREDS 14,320-226-200 rmjf-sl-almy capsule 1 cap PO BID Other Ambulatory Orders: 12 Lead EKG (Routine) Timeframe: [id number] Location: None Selected Ordered By: Dr. Chris Buitrago Referrals / Follow Up: Sergio Mari MD [Primary Care Provider] - Disposition Disposition (needs filled in before D/C Order can be placed): Home, Self Care
[2022-02-07] MEDS: Lactated Ringers 1,000 ML 15 ML IV (11:11)
[2022-02-07] MEDS: Cefazolin 2 GM in 0.9% Normal Saline 100 ML IV (12:47)
[2022-02-07] MEDS: Lidocaine 1% (20 ml mdv) 20 ML Vial (13:07)
[2022-02-07] MEDS: Bupivacaine 0.25% 30 ML Vial (13:07)
--- NOTE | 2022-02-07 13:45 | PCM.OPRPT ---
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 81-year-old female was taken down from placement table underwent monitored anesthesia care. Ancef 2 g were given intravenously. The right neck and chest were sterilely prepped and draped. Ultrasound was used to identify the right internal jugular vein. 1% lidocaine mixed 50-50 with 0.25% Marcaine was used as a local anesthetic. 15 cc was used. Local was instilled on ultrasound guidance. Micropuncture needle inserted in the right internal jugular vein followed by wire advancement. Then local instilled down upon the chest wall transverse incision was created subcutaneous pocket created. Tubing was tunneled from the chest to the neck. Sheath dilator was placed over a J-wire which had been placed. The catheter was positioned I needed to use 6 cc of Isovue contrast to position at the SVC atrial junction. The tubing was amputated connected to the port secured with a port attachment device the port was placed in the pocket secured it with 2-0 silk the port site was closed with interrupted 3-0 Vicryl and interrupted 5-0 Vicryl subdermal stitches. Steri-Strips Telfa OpSite dressings applied. Sponge and instrument and needle counts were reported to the surgeon to be correct. The port was accessed and aspirated easily it was flushed with saline and then 2 cc of heparinized saline. The patient was taken to the recovery room in satisfactory condition stat portable chest x-ray is pending Specimen none. Drains none. Blood loss minimal. Chris Buitrago M.D., F.A.C.S. Surgeon: Chris Buitrago Type of Anesthesia: Local MAC Anesthesiologist: Nayla Montelongo
--- NOTE | 2022-02-07 14:15 | RAD_ITS ---
EXAM: XR CHEST, 1 VIEW CLINICAL INDICATION: Post op port placement TECHNIQUE: Frontal view of the chest. This report was created using [employer] report generation technology. COMPARISON: CT chest without contrast 02/01/2022. FINDINGS: LUNGS AND PLEURAL SPACES: No pneumothorax. No suspicious infiltrates. Pulmonary hyperinflation with mild flattening of the hemidiaphragms due to airway predominant type of COPD. No effusion. HEART: Mild cardiomegaly. MEDIASTINUM: Central airways and mediastinal contour are unremarkable. BONES/JOINTS: Unremarkable. SOFT TISSUES: Unremarkable. VASCULATURE: Moderate atherosclerotic calcifications along the thoracic aorta. TUBES, LINES AND DEVICES: Right IJ approach Omrr-E-Gygdetwh tip is in the distal SVC. RAD/Chest 1 View (Portable) IMPRESSION: 1. No acute findings in the chest. 2. Right IJ approach Xlzb-V-Owbjpdat tip is in the distal SVC. 3. Mild COPD, airway predominant type when compared to CT chest of 02/01/2022. Electronically Signed: Nishant Christian MD at 14:38 EDT ,
== END 2022-02-07 15:31 | disposition home or self-care (01) ==
LOC: SDC 10:29 → AC 10:30
PROVIDERS: PCP Family Medicine; Referring Provider Surgery; Visit Provider Surgery
PROC: (CPT 36561; principal; 2022-02-07 12:30)
DX: C50.912 Malignant neoplasm of unspecified site of left female breast (principal); C77.3 Secondary and unspecified malignant neoplasm of axilla and upper limb lymph nodes; I10 Essential (primary) hypertension; Z78.0 Asymptomatic menopausal state; Z79.899 Other long term (current) drug therapy
CPT/HCPCS: 36561; 00532; 36415; 71045; 77001; 80048; 85027; 93005; J7120; C1769; J2405

== ENCOUNTER → 2022-05-30 | Outpatient (CLI) | payer MEDICARE, OTHER, SELFPAY ==
--- NOTE | 2022-05-30 08:59 | BI_ITS ---
MAMMOGRAPHY - UNILATERAL DIAGNOSTIC: LEFT BREAST REASON FOR EXAM: Female, 82 years old. Placement of tissue clip markers following biopsies. PERTINENT HISTORY: Personal history of breast cancer. TECHNIQUE: Digital unilateral breast thalia (3D mammographic acquisition) in the CC and MLO projections. 2-D mediolateral oblique (MLO) and craniocaudad (CC) views of both breasts were obtained. CAD: Full Field Digital Mammography with Computer Added Detection was performed. COMPARISON: Comparison is made with prior study dated 12/21/2021 and 12/04/2020. FINDINGS: Breast Composition: The breasts are extremely dense, which lowers the sensitivity of mammography. There are no dominant masses or suspicious calcifications. 2 adjacent tissue clip markers are seen in the axillary region of the left breast. No other significant abnormalities are identified. BI/DIAG MAMM W/CAD, UNILAT IMPRESSION: 2 adjacent tissue markers are seen in the axial region of the left breast. One year follow-up mammogram recommended. (A) ASSESSMENT CATEGORY: BIRADS Category 2: Benign. A letter regarding these results will be sent to the patient by the facility within 30 days. Approximately 10% of breast cancers are not detected by mammography. A normal mammogram should not delay biopsy of a clinically suspicious abnormality. Electronically Signed: Dejuan Salvador MD at 10:58 EST ,
--- NOTE | 2022-05-30 09:44 | US_ITS ---
STUDY: ULTRASOUND BREAST - LEFT REASON FOR EXAM: Female, 82 years old. Prior left axillary biopsy. Localizing the tissue clip marker. TECHNIQUE: Axial and longitudinal images of the LEFT breast were performed with a high resolution ultrasound transducer. # OF IMAGES: 13 COMPARISON: Comparison is made with prior study of 12/31/2021. FINDINGS: LEFT Breast: A lymph node is seen in the left axilla with a clip. This measures 1 cm x 0.5 cm x 0.3 cm. US/Breast Limited Unilateral IMPRESSION: There is a 1 cm x 0.5 cm x 0.3 cm lymph node in the left axilla. A lymph node is seen within. ASSESSMENT CATEGORY: BIRADS Category 2: Benign. A letter regarding these results will be sent to the patient by the facility within 30 days. Electronically Signed: Dejuan Salvador MD at 14:28 EST ,
== END | disposition home or self-care (01) ==
PROVIDERS: PCP Family Medicine; Referring Provider Surgery; Visit Provider Surgery
DX: R59.0 Localized enlarged lymph nodes (principal); R92.8 Other abnormal and inconclusive findings on diagnostic imaging of breast
CPT/HCPCS: 76642; 77061; 77065; G0279

== ENCOUNTER 2022-07-01 05:48 | Day surgery (SDC) | payer MEDICARE, OTHER, SELFPAY ==
--- NOTE | 2022-06-25 10:41 | EKG12_ITS ---
Test Reason : PREOP Blood Pressure : / mmHG Vent. Rate : 077 BPM Atrial Rate : 077 BPM P-R Int : 126 ms QRS Dur : 094 ms QT Int : 408 ms P-R-T Axes : 044 044 045 degrees QTc Int : 461 ms Sinus rhythm with Premature supraventricular complexes Left ventricular hypertrophy Abnormal ECG Confirmed by MINA PAYNE, PHANI ([id number]), desk editor AN KRUEGER ([id number]) on 06/26/2022 10:26:58 AM Referred By: STEVEN Confirmed By:PHANI ENRIQUEZ MD
[2022-07-01] VITALS (8 sets, daily range): BP systolic 117–141; BP diastolic 59–81; PULSE 65–91; RESP 16–18; TEMP 36.3–36.4; O2SAT 92–99; BMI 18.5
--- NOTE | 2022-07-01 | IMM_PTH ---
PATIENT: CRISTHIAN RIVERO LOC: [facility] [place] U#:[id number] AGE/SX: 82/F ROOM: RE07/01/[address]: Dr. Chris Buitrago MD : 1940 BED: DIS: 07/01/2022 SPEC #: [id number] RECD: 07/03/22 14:07 STATUS: JAX REWilliam #: [id number] MALIK: 07/01/22 00:[address]: Chris Buitrago DEPT: IMMUNOHISTOCHEMISTRY RECD BY: Marium Bowles ENTERED: 07/03/22 14:08 SP TYPE: IMMUNO OTHR DR: Dr. Sergio Mari MD Tissues: B - Axillary lymph node, NOS Procedures: CK7 (add) Pankeratin (initial) Pankeratin (add) PHYSICIAN & INSTITUTION [place] [id number] SPECIMEN INFORMATION: Tissue Source: B ? Left axillary node dissection Clinical Info: Left breast cancer, axillary lymphadenopathy Specimen Number: [id number] B1-B8 CPT code: 98762, 76928 x15 METHODOLOGY: Deparaffinized sections of prefer/formalin-fixed tissue or PAP/DQ stained slides are incubated with monoclonal/polyclonal antibodies/oligonucleotide probes. Localization is made via biotin free immunoperoxidase method. Appropriate controls are performed and reacted as expected. Results on target cell population are indicated in the following table: RESULTS: ANTIBODY / CLONE RESULT Block B1 AE1-3 (AE1/AE3/PCK26) negative CK7 (OV-TL12/30) negative Block B2 AE1-3 (AE1/AE3/PCK26) negative CK7 (OV-TL12/30) negative Block B3 AE1-3 (AE1/AE3/PCK26) negative CK7 (OV-TL12/30) negative Block B4 AE1-3 (AE1/AE3/PCK26) negative CK7 (OV-TL12/30) negative Block B5 AE1-3 (AE1/AE3/PCK26) negative CK7 (OV-TL12/30) negative Block B6 AE1-3 (AE1/AE3/PCK26) negative CK7 (OV-TL12/30) negative Block B7 AE1-3 (AE1/AE3/PCK26) negative CK7 (OV-TL12/30) negative Block B8 AE1-3 (AE1/AE3/PCK26) negative CK7 (OV-TL12/30) negative These tests were developed and their performance characteristics determined by [facility]. They may not have been cleared or approved by the U.S. Food and Drug Administration. The FDA has determined that such clearance or approval is not necessary. The above immunohistochemical/dualISH markers are ordered and reviewed by the Pathologist. INTERPRETATION: B. Left axillary node dissection: Fourteen out of 14 lymph nodes, negative for metastatic carcinoma. SJ:marco antonio 07/04/2022
--- NOTE | 2022-07-01 | BRBX_PTH ---
PATIENT: CRISTHIAN RIVERO LOC: [facility] [place] U#:[id number] AGE/SX: 82/F ROOM: RE07/01/[address]: Dr. Chris Buitrago MD : 1940 BED: DIS: 07/01/2022 SPEC #: [id number] RECD: 07/01/22 09:08 STATUS: JAX REWilliam #: [id number] MALIK: 07/01/22 00:[address]: Chris Buitrago DEPT: SURGICAL PATHOLOGY RECD BY: Marium Bowles ENTERED: 07/01/22 10:13 SP TYPE: BREAST BX OTHR DR: Dr. Sergio Mari MD Tissues: A - Left breast, NOS B - Axillary lymph node, NOS Procedures: Surgery Specimen Level IV Surgery Specimen Level V HEADER OPERATION: Stereotactic wire localization breast, axillary lymph node PRE-OP DIAGNOSIS: Left breast cancer, axillary lymphadenopathy, Breast CA metastasized TISSUE SUBMITTED: A - Left breast, B ? Left axillary node dissection MICROSCOPIC DIAGNOSIS A. Left breast, lumpectomy with needle localization: Negative for residual carcinoma. Hyalinization and fibrosis consistent with therapy-related changes. Focal microcalcifications. B. Left axillary lymph node, regional dissection: 14 out of 14 lymph nodes negative for metastatic carcinoma. See comment. JED:marco antonio 07/03/2022 COMMENT B. Immunohistochemistry ([id number]) supports the above diagnosis. BREAST CANCER SUMMARY (including specimens [id number] and [id number]) Procedure - excision (lumpectomy with wire localization) Specimen laterality - left Tumor site ? not specified Tumor size ? no residual carcinoma in lumpectomy specimen. Biopsy specimen ([id number]) ? 0.9 cm in greatest length. Histologic type ? invasive ductal carcinoma, no special type, biopsy specimen ([id number]). Histologic grade (Esteban grade): Biopsy specimen ([id number]) Glandular/tubular differentiation score - 3 Nuclear pleomorphism score - 3 Mitotic count score - 1 Overall grade - grade 2 (score of 7) Tumor focality ? cannot be determined. Ductal carcinoma in situ ? not identified in lumpectomy specimen or biopsy specimen. Lobular carcinoma in situ ? not present Tumor extension: Skin ? not present Nipple ? not applicable Skeletal muscle ? not present Margins ? free of tumor. Distance cannot be assessed as no carcinoma is present in the lumpectomy specimen. Regional lymph nodes: Number of lymph nodes examined - 14 Number of sentinel lymph nodes examined - 0 Number of lymph nodes with macrometastases, micrometastases or isolated tumor cells - 0 Treatment effect: In the breast - no residual invasive carcinoma is present in the breast after presurgical therapy. In lymph nodes ? no lymph node metastasis. Fibrous scarring is related to prior lymph node metastasis with pathologic complete response. Foreign body giant reaction is also noted consistent with previous biopsy related changes (Block B1) Metastatic carcinoma in the previous biopsy ([id number]) measures 0.2 cm in greatest length. Lymphvascular invasion ? not identified Dermal lymphvascular invasion ? not applicable Additional Pathologic Findings ? hyalinization and fibrosis status post chemotherapy. Ancillary Studies: Previously performed on same tumor ([id number] / [id number]) ER: negative (0%) [place]: negative (0%) Nza8tax: positive (3+) Ki67: positive, moderate (~60%) Microcalcifications ? present in non-neoplastic tissue. Clinical History - Please make reference to previous specimens ([id number]) left axillary lymph node, core biopsy with diagnosis of ?metastatic carcinoma consistent with breast primary? and ([id number]) left breast mass, core biopsy with diagnosis of ?invasive ductal carcinoma.? PATHOLOGIC STAGE: pT0(y) pN0(y) pMx The above summary is in compliance with [employer] (CAP) Cancer Protocols Checklist and [place] [employer] Committee on Cancer (AJCC), Staging Manual, 8th Ed. Case has been reviewed in consultation with Dr. Carty who concurs with the above diagnosis. IDC:AM MICROSCOPIC DESCRIPTION Slides are reviewed. GROSS DESCRIPTION A - Received fresh for intraoperative consultation labeled with the patient's name is a specimen designated left breast mass. The specimen consists of a piece of fibroadipose tissue with needle localization measuring 8.0 x 7.0 x 3.0 cm. The specimen is oriented as follows: wire - anterior, long suture - lateral, short suture - superior. The specimen is inked as follows: anterior - yellow, posterior - black, superior - blue, inferior - green, medial - red and lateral - orange. Serial sections do not reveal any mass lesion. A metallic clip is noted. Adjacent to the clip, a fibrous area is noted. This area is 1.0 cm away from the closest superior margin. This information is conveyed to the surgeon intraoperatively. Sections of the rest of the specimen also reveal herman-yellow adipose cut surfaces mixed with herman-white fibrous area. Circuit Court Clerk sections are submitted in 16 cassettes as follows: 1 ? perpendicular medial, lateral and superior margins, 2 ? perpendicular anterior, posterior and inferior margins, 3-8 ? fibrous area adjacent to the clip, 9-16 - public relations representative sections from other areas. / JED:marco antonio 07/02/2022 B - Received in fixative is one container labeled with the patient's name and designated left axillary node dissection. The specimen consists of an irregular piece of adipose tissue measuring 6.0 x 4.0 x 1.5 cm. Dissection reveals multiple lymph nodes. The largest lymph node measures 1.0 cm in greatest dimension. The lymph nodes are submitted in entirety. Circuit Court Clerk sections are submitted in eight cassettes as follows: 1-6 - each cassette containing one bisected lymph node (cassette 1 contains the lymph node with a metallic clip), 7 - multiple lymph nodes, 8 - multiple lymph nodes. / JED:marco antonio 07/02/2022 TC: CPT: 99789, 99453
--- NOTE | 2022-07-01 07:10 | BI_ITS ---
SURGICAL BREAST SPECIMEN RADIOGRAPH CLINICAL: Document presence of tissue clip marker in biopsy specimen. FINDINGS: Specimen shows presence of tissue clip marker. Pathology is pending and an addendum to the biopsy report will be performed after the final pathologic diagnosis is rendered. Electronically Signed: Josue Pedro MD at 9:31 EDT , BI/Breast Biopsy Specimen IMPRESSION: undefined
--- NOTE | 2022-07-01 07:11 | HP.PCM_ITS ---
History and Physical Date of Admission: 07/01/22 Clinical Program Manager Required: No Is patient in pain?: No Allergies Antihistamines - Alkylamine Allergy (Mild, Verified 05/23/22 09:55) Othercodeine Allergy (Mild, Verified 05/23/22 09:55) Other PFSH Medical History? Cancer Encounter for education Heart murmur Heartburn Hemorrhoids History of echocardiogram History of hiatal hernia HTN (hypertension) Hypertension Non-smoker Post-menopausal Wears glasses Surgical History? H/O eye surgery Hx of colonoscopy S/P hysterectomy S/P right breast biopsy Family History? Father Colon cancer Social History? Smoking Status:? Never smoker alcohol intake:? never HPI HPI HPI: 82-year-old female.? Diagnosed history of left breast cancer with extra lymph node metastasis.? On February 08, 2022 I placed a right internal jugular port and the patient then proceeded under the direction Dr. Sang Smith with neoadjuvant chemotherapy.? 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 Dr. Sang Smith's note reflects the following 82y.o.woman presented with abnormal mammogram on 12/21/2021, showed 2.7cm mass in L breast UOQ. US on 12/31/2021 showed 2.1cm mass in L breast UOQ.? Saw Dr. Gong on 01/03/2022, found to have a L breast mass and axillary node. Core Biopsy was done and Pathology showed benign L breast tissue, Invasive ductal ca in L axillary node, ER/WY negative, Her2 3+.? She saw Dr. Buitrago on 01/16/2022, had L breast core biopsy which showed invasive ductal carcinoma. She was referred for further evaluation and management.? CT c/a/p on 02/01/2022 showed L breast nodule and L axillary node.? Echocardiogram on 02/04/2022 showed EF 65%. PET/CT 02/13/22 demonstrated hypermetabolic activity in the left breast, measuring 15.5 mm corresponding SUV 4.7 and left axilla measuring 12.2mm and SUV 2.6, no evidence of distant metastatic disease.? She is diagnosed with stage IIB(cT2 cN1 M0) L breast cancer. Started neoadjuvant chemotherapy and Monoclonal antibody therapy on 02/26/2022 . Comes for C4D15 Taxol.? She feels well She has tolerated the neoadjuvant chemotherapy she states with minimal trouble. My previous notes reflect the following On January 16, 2022 I performed ultrasound-guided needle core biopsy upper outer quadrant left breast lobulated 1.6 cm x 2.1 cm x1.2 cm at the 2 o'clock position +10 cm which was positive for invasive ductal carcinoma.? She had already had a left axilla lymph node biopsied which was also positive for metastatic disease.? A ribbon clip has been placed. On February 08, 2022 I placed a right internal jugular port for her to facilitate neoadjuvant chemotherapy. Assessment and Plan (1) Breast cancer, left: ?Status:?Acute ?Comment: Left breast cancer- clinical T2 cNx, ER negative, Her2 3+. Discussed aggressive nature, need for staging, surgery vs kalpesh-adjuvant therapy vs adjuvant therapy. She wants surgery as soon as possible. (2) Breast cancer metastasized to axillary lymph node: ?Status:?Acute (3) Axillary lymphadenopathy: ?Status:?Acute ?Comment: 81-year-old female.? She was initially seen by Dr. Lali Gong on January 03, [address] Sergio Mari for evaluation of left axillary adenopathy.? The patient complained of a feeling of bruising of the left breast. 81-year-old female.? A0.? Menarche at age 9.? First child was born when she was 19.? She did not breast-feed.? She does not recall whether she was on estrogen replacement therapy.? Family history is negative for breast cancer.? She knows that she has 2 clips in the right breast but does not seem to remember the biopsy technique.? Her current problem is on the left as noted below. The patient's has dementia and requires routine constant care. Her evaluation included on December 21, 2021 bilateral screening mammography demonstrating a 1.8 x 2.7 cm well-defined nodule upper outer aspect of the left breast.BI-RADS 0.? Subsequently a left breast ultrasound was obtained on December 31, 2021.? That suggested a lobulated 1.6 x 2.1 x 1.2 cm hypoechoic nodule at 2 o'clock position +10 cm biopsy recommended BI-RADS Category 4.? At the time of the clinical examination adenopathy of the left axilla was noted and confirmed on office performed ultrasonography. On that same day she had an ultrasound-guided needle core biopsy of the left breast lesion and of an enlarged left axillary lymph node.? Pathology of the left breast mass at 2 o'clock position shows college-age tissue.? The left axillary lymph node demonstrates metastatic carcinoma consistent with breast primary.? Estrogen receptor less than 1%.? Progesterone receptor 0%.? HER2/paul 2-3+.? It is of note that the interpretation however suggested positive for estrogen receptor.? It is of additional note that the patient has extraordinarily dense breasts on mammographic imaging Breast MRI performed January 23, 2022 only demonstrates the left breast mass and does not demonstrate any metastatic disease to the left axilla which is palpable and has been biopsy-proven STUDY: ? BILATERAL BREAST MR WITHOUT AND WITH CONTRAST REASON FOR EXAM: ? Female, 81 years old. ? Evaluation of left breast cancer.? History of right breast biopsies. TECHNIQUE: ? Multi-sequence multi-echo imaging of both breasts was performed with a dedicated breast coil.? T1-weighted and T2-weighted images were performed before the administration of contrast.? T1-weighted images were also performed after the intravenous administration of 10 cc of Clariscan contrast. COMPARISON:? ? Bilateral mammogram dated 12/21/2021, unilateral left mammogram dated 12/31/2021 and left breast ultrasound dated 12/31/2021. FINDINGS: RIGHT BREAST: The breast tissue is heterogeneously dense with no background enhancement. There are no abnormal enhancing masses or areas of non-mass enhancement in the right breast. LEFT BREAST: The breast tissue is heterogeneously dense with no background enhancement. Ovoid enhancing mass at the 2 o''clock position of the left breast 10 cm from the nipple corresponding to the ultrasonographic findings.? Slight increased vascularity in the lateral aspect of the left breast. There are no enlarged or abnormal lymph nodes.? There is no abnormality in the visualized regions of the chest or liver. MRI/Breast Bilateral W/O and W IMPRESSION: Solitary enhancing lobular slightly irregular mass in the left breast corresponding to the ultrasonographic findings. ? No adenopathy. ? ? CATEGORY: BIRADS Category 6:? Known Biopsy-Proven Malignancy - Appropriate Action Should Be Taken.? A letter regarding these results will be sent to the patient by the facility within 30 days. ? Electronically Signed: Ciaran Merritt, at 14:00 EDT , December 21, 2021 MAMMOGRAPHY - BILATERAL SCREENING REASON FOR EXAM:? ? Female, 81 years old.? Routine annual screening examination. PERTINENT HISTORY:? Non-contributory.? History of prior right medial breast biopsies. TECHNIQUE: ? Digital bilateral breast socorro (3D mammographic acquisition) in the CC and MLO projections. 2-D mediolateral oblique (MLO) and craniocaudad (CC) views of both breasts were obtained.? CAD: Full Field Digital Mammography with Computer Added Detection was performed. COMPARISON: ? Comparison is made with prior study dated 12/04/2020 and 11/23/2019. FINDINGS: Breast Composition:? The breasts are extremely dense, which lowers the sensitivity of mammography. I suspect a 1.8 cm x 2.7 cm well-defined nodule in the upper lateral aspect of the left breast.? Correlation with ultrasound is recommended.? A tissue clip marker is once again seen in the upper slightly lateral aspect of the right breast.? Stable appearance of the calcifications bilaterally.? No focal cluster is seen. No other significant abnormalities are identified. BI/SCRN MAMM (CAD)W/SOCORRO BILAT IMPRESSION: Findings suggest 1.8 cm x 2.7 cm well-defined nodule in the upper lateral aspect of the left breast.? Correlation with ultrasound is recommended. ? ? ASSESSMENT CATEGORY: BIRADS Category 0:? Incomplete.? Need additional imaging evaluation.? A letter regarding these results will be sent to the patient by the facility within 30 days. ? Approximately 10% of breast cancers are not detected by mammography.? A normal mammogram should not delay biopsy of a clinically suspicious abnormality. ? [id number] ? Electronically Signed: Dejuan Salvador MD at 10:50 EDT , December 31, 2021 STUDY: ? ULTRASOUND BREAST - LEFT REASON FOR EXAM: ? Female, 81 years old.? Abnormal screening mammogram. TECHNIQUE: ? Axial and longitudinal images of the LEFT breast were performed with a high resolution ultrasound transducer. # OF IMAGES:? 28 COMPARISON: ? Comparison is made with prior mammogram dated 12/21/2021. FINDINGS: LEFT Breast: The mammographic abnormality corresponds to a lobulated 1.6 cm x 2.1 cm x 1.2 cm hypoechoic nodule at the 2 o''clock position of the breast at 10 cm from nipple.? Increased vascularity is seen.? Biopsy recommended. US/Breast Limited Unilateral IMPRESSION: Lobulated hypoechoic nodule at the 2 o''clock position of the breast at 10 cm from the nipple.? Increased vascularity.? Biopsy recommended. ? ASSESSMENT CATEGORY: BIRADS Category 4:? Suspicious - Biopsy Should Be Considered.? A letter regarding these results will be sent to the patient by the facility within 30 days. ? Electronically Signed: Dejuan Salvador MD at 11:24 EDT , Exam Const General: cooperative, comfortable and no acute distress Nutritional Appearance: underweight Other: The patient clearly has lost weight since initiation of her chemotherapy. [facility] Head: normal to inspection Eyes General: appearance normal, both eyes and all related structures Neck Neck: normal visual inspection Chest Other: Left breast: No focally palpable mass.? No tenderness.? Biopsy site rather high in the upper outer quadrant of the left breast noted and well-healed. Left axilla completely flat.? No palpable adenopathy Resp Effort & Inspection: normal respiratory effort Auscultation: clear to auscultation bilaterally Cardio Rate: regular rate Rhythm: regular rhythm GI Inspection: normal to inspection Palpation: soft and no hepatosplenomegaly Musc Cervical Spine: normal cervical lordosis Skin General: no rashes or lesions noted Neuro General: patient alert and patient awake Extrem General: normal to inspection and no calf tenderness Psych Appearance: grossly normal Assessment and Plan Assessment and Plan (1) Breast cancer, left: ?Status:?Acute ?Comment: Left breast cancer- clinical T2 cN1-stage IIB, ER/W[place] negative, Her2 3+ positive, Ki67 50%. CT on 02/01/2022 showed L breast nodule? 1.8cm, L axillary nodes and RUL nodule. PET/CT 02/13/22 shows L breast mass and axillary node activities. Started neoadjuvant chemotherapy-Taxol/Perjeta/Herceptin analogue on 02/26/2022. Comes for C4D15 Taxol today. Tumor is decreasing. Counts and chemistry 05/14/2022 are ok for therapy. (2) Breast cancer metastasized to axillary lymph node: ?Status:?Acute ?Plan: The patient's previously palpable left axillary lymph node now has resolved.? This area was not seen on mammographic imaging or MRI.? A formal ultrasound had not been performed at that area either.? She does have a ribbon marking clip in place in that area.? She has 2 marking clips placed in the area of her primary tumor upper outer quadrant left breast 2 o'clock position +10 cm. I recommend to her a left unilateral mammogram.? Would like to see how the clips lay out.? I suspect at this time that the breast clips will be visualized and that we will be able to then subsequently plan a stereotactic wire localization.? With the patient's body shape and weight loss I suspect that the left axillary lymph node will not be identifiable or achievable using a stereotactic approach.? I have a lower level of suspicion that it can be visualized with ultrasound either.? With that in mind likely anticipate that the procedure would be a stereotactic wire localization upper outer quadrant left breast with a wire localized lumpectomy and a level 1 2 left axillary lymph node dissection.? No nuclear tracer blue dye will be indicated.? Patient is aware that an axillary drain will be placed. The patient is very much interested in having this proceed as outpatient surgery if possible.? 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 We did discuss that she would be curtailed from driving for at least 5 days. On May 30, 2022 the patient had a unilateral left breast mammogram. This demonstrated 2 adjacent marking clips in the axial region of the left breast. It was interpreted as BI-RADS Category 2. This of course was subsequent to her neoadjuvant chemotherapy. At that same setting the patient had a left breast ultrasound. A lymph node is identified in the left axilla measuring 1 x 0.5 x 0.3 cm. A marking clip is noted to be in position. With this as information is that anticipated that we will proceed with stereotactic wire localization upper outer quadrant left breast and hopefully intraoperatively an ultrasound-guided wire localization of the left axillary lymph node followed by a left breast lumpectomy wire localized and a left axillary level 1 AND 2 lymph node dissection. The patient is aware of the technique, benefit, risk and alternatives. She has had an opportunity to ask and have questions answered. We will proceed as noted. Copy: Dr. Sergio Mari and Dr. Sang Buitrago M.D., F.A.C.S.
--- NOTE | 2022-07-01 07:19 | EX.PCM.DISCH ---
Discharge Instructions Procedure Breast Surgery Diet Discharge Diet: No restrictions Activity Discharge Activity: May Not Drive (for 2-3 days or while taking narcotic pain meds.) May shower in (days): 1 Lifting Restrictions: 10 pounds for 1 week. Dressing / Incision Call your doctor if your incision/area has: Continuous Slow Oozing and Sudden Increased Bleeding Call your doctor if you observe: Fever of 101 or Higher Suture Line Care: Avoid Pulling/Pushing and Avoid Pinching/Bending Additional Dressing/Incision Instructions:: Empty, measure, and record the amount of JAMIR drain output. Keep as a daily record. Please change the dressings to the left axillary drain site once daily. Use a Q-tip and peroxide to cleanse around the drain site and then reapply dry gauze and tape. Keep the left breast and axillary incisions as well as the drain site clean and dry with no showering until the day after the drain is removed. Please contact the office for a follow-up appointment on the day discussed with you by your surgeon [phone] Follow Up Care Please Follow Up With: Chris Buitrago MD Test Results: Test results from this visit will be discussed in further detail at your follow-up appointment, if applicable. Discharge Plan Admission Attending Provider: Chris Buitrago Primary Care Provider: Sergio Mari Discharge Orders/Prescriptions Prescriptions: No Action lisinopril-hydrochlorothiazide 20-25 mg tablet 1 tablet PO DAILY PreserVision AREDS [id number] capsule 1 cap PO BID lorazepam 0.5 mg tablet 0.25 mg PO DAILY PRN (Reason: Anxiety) ondansetron 8 mg tablet,disintegrating 8 mg PO Q8H PRN (Reason: nausea and vomiting) Qty: 30 1RF lidocaine-prilocaine 2.5-2.5 % cream 1 applic topical ONCE PRN (Reason: port access) 30 Days Qty: 30 2RF omeprazole 20 mg Tablet,Delayed Release (Dr/Ec) 20 mg PO DAILY Referrals / Follow Up: Sergio Mari MD [Primary Care Provider] - Disposition Disposition (needs filled in before D/C Order can be placed): Home, Self Care
[2022-07-01] MEDS: Cefazolin 2 GM in 0.9% Normal Saline 100 ML IV (07:22)
[2022-07-01] MEDS: 0.9 % NaCl (Sterile) Posiflush 10 mL IV (07:27)
--- NOTE | 2022-07-01 08:09 | OP.PCM_ITS ---
Report of Operation Date of Procedure: 07/01/22 Pre-Operative Diagnosis: Upper outer quadrant left breast invasive ductal carci noma with axillary lymph node metastasis Post-Operative Diagnosis: Same Surgery/Procedure Performed:: Stereotactic wire localization upper outer quadr ant left breast mass Wire localized upper outer quadrant left breast lumpectomy Left axillary level 1 and 2 lymph node dissection with ultrasound-guided wire localization of known metastatic lymph node Description of Surgical Findings:: Timeout and informed consent was obtained. 82-year-old female was taken to the stereotactic room placed prone on the table the left wrist was placed in a lateral medial view the 2 adjacent marking clips and position were noted. Stereotactic images were obtained. Digital information was obtained on a single target site. Target on industrial specialist was selected replacing image #1. The breast was subsequently prepped with Betadine. A single target site had been selected and a depth +15 mm selected. Breast was treated with 1 cc of 1% lidocaine. 20- gauge Kopan's needle was advanced to depth +10 mm. Marking wire was displaced. Follow-up Ceretec images were obtained demonstrating adequate localization. Tape and then dry gauze dressing was applied. She tolerated procedure well no apparent complication. The patient was subsequently taken to the operating room. She was placed upon the table. She underwent general anesthesia. The left arm was carefully wrapped with soft roll and placed at right angles to the table. The left breast and axilla were sterilely prepped and draped. I performed ultrasound and thought that I identified the lymph node with a marking clip in the left axilla. Admittedly this inspection was extraordinarily difficult due to the extreme thinness of the patient and superficial nature of the structures. Using ultrasound I used a Kopan's needle placed the needle and and then a wire. Then addressed the lumpectomy site made a curvilinear incision in the upper quadrant of the left breast use electrocautery and dissected around the wire positioning. It is of note that there was no visible or palpable remaining tumor. This also made the dissection difficult as the margins were indistinct I dissected completely around and then put a short suture superiorly and long suture laterally the wire exited anteriorly. Mammograms were taken of the specimen and indeed the marking clips and wire localization were centered in the specimen. The pathologist grossly inspected the specimen and saw no residual tumor. They were not able to provide any margins. Placed a Ray-Merritt gauze in that wound to assist with hemostasis. Made a transverse incision in the left axilla sharp dissection was carried down through the subcutaneous tissue and opened the axillary fascia identified the position ing of the axillary vein identified quickly the intercostal brachial cutaneous nerve to the upper arm and dissected along keeping that dissected completely free used hemoclips and electrocautery when needed. Further then identified the axillary vein dissected tissue off and where needed penetrating venous structures were secured with hemoclips. Identified the thoracodorsal nerve rapidly and protected that as I dissected out laterally. I then finished my dissection on the intercostal mechanical changes nerve it branched laterally and I preserved both branches. The wire localized lymph node appeared to be right between the split of the intercostal located brachial cutaneous nerve and I had to carefully dissect that free. Then identifying the latissimus dorsi I dissected the tissue down to level 1 and level 2 lymph nodes from the axilla sweeping them down identifying the long thoracic nerve root felt as well. Tissue was dissected from superior to inferiorly and where needed hemostasis attained with hemoclips. Dissection was completed packet was inspected and noted to have at least several lymph nodes by visual inspection of the axilla and by palpation there was no residual gross lymph node disease. Hemostasis was assured. The axillary was irrigated and aspirated free. Crawford structures were left in place. A stab incision was made inferior to the wound a 10 round JAMIR drain was exited it was secured to skin with 3-0 nylon was amputated length. The x-ray wound was closed the deep layer of interrupted 3-0 Vicryl and then a running subicular 4 Monocryl. Nithya-incisional areas anesthetized with 0.25% Marcaine. The lumpectomy wound was inspected was hemostatic. 4 corner marking clips were placed with small metal clips. That wound also was closed with deep layer of interrupted 3-0 Vicryl and then a running subicular 4 Monocryl. That tissue was also anesthetized with 0.25% Marcaine. A total of 30 cc was used. Steri-Strips Telfa bulky dry dressings were applied. Sponge and instrument and needle counts were reported to the surgeon to be correct. Specimens upper inner quadrant left breast lumpectomy and left axillary level 1 2 lymph nodes. Drains 15 round JAMIR to the axilla. Blood loss minimal. The patient was taken to the recovery room in satisfied condition without apparent complication Synoptic Portion: Element Response Options Operation performed with curative intent. Yes Resection was performed within the boundaries of the axillary vein, chest wall (serratus anterior), and latissimus dorsi. Yes Nerves identified and preserved during dissection (select all that apply) thoracodorsal and long thoracic nerve of Madrigal and intercostal percutaneous nerve Level III nodes were removed. No Synoptic Portion: Element Response Options Operation performed with curative intent. Yes Tracer(s) used to identify sentinel nodes in the upfront surgery (non- neoadjuvant) setting (select all that apply). Not applicable Tracer(s) used to identify sentinel nodes in the neoadjuvant setting (select all that apply). Not applicable All nodes (colored or non-colored) present at the end of a dye-filled lymphatic channel were removed. Not applicable All significantly radioactive nodes were removed. Not applicable All palpably suspicious nodes were removed. Yes Biopsy-proven positive nodes marked with clips prior to chemotherapy were identified and removed. Yes Surgeon: Chris Buitrago Type of Anesthesia: General and Local Anesthesiologist: Jagjit Montelongo
[2022-07-01] MEDS: Lactated Ringers 1,000 ML 15 ML IV (08:16)
[2022-07-01] MEDS: Bupivacaine 0.25% 30 ML Vial (10:24)
[2022-07-01] MEDS: Acetaminophen 325 MG Tablet 650 MG PO (12:48)
[2022-07-01] MEDS: 0.9% Saline Lock 10 ML Syringe IV (13:30)
== END 2022-07-01 13:45 | disposition home or self-care (01) ==
LOC: SDC 05:48 → AC 05:48
PROVIDERS: PCP Family Medicine; Referring Provider Surgery; Visit Provider Surgery
PROC: 0HBV0ZZ Excision of Bilateral Breast, Open Approach (ICD-10-PCS; CPT 19302; principal; 2022-07-01 08:15)
DX: C50.412 Malignant neoplasm of upper-outer quadrant of left female breast (principal); R59.0 Localized enlarged lymph nodes; I10 Essential (primary) hypertension; K21.9 Gastro-esophageal reflux disease without esophagitis; Z79.899 Other long term (current) drug therapy; Z17.1 Estrogen receptor negative status [ER-]
CPT/HCPCS: 19302; 19283; 00400; 19281; 76098; 88305; 88307; 88341; 88342; 93005; A4648; J7120; J2405; Q9968

== ENCOUNTER → 2022-07-30 | Outpatient (CLI) | payer MEDICARE, OTHER, SELFPAY ==
--- NOTE | 2022-07-30 07:22 | ECHOLONC_ITS ---
Reason For Study: PRE CHEMO Procedure This was a limited 2D transthoracic echocardiogram. Myocardial strain analysis was performed in this exam to aid in the assessment of cardiac function. Exam performed in department. Left Ventricle Normal LV size. Mild concentric left ventricular hypertrophy. The global longitudinal strain = - 14.9% (borderline). The left ventricular ejection fraction is 60 %. Right Ventricle Normal right ventricle. Atria The left atrium is mildly enlarged. Normal right atrium. Mitral Valve There is Mild focal anterior mitral annular calcification. There is Mild focal posterior mitral annular calcification. Tricuspid Valve Normal tricuspid valve. Aortic Valve Moderate diffuse aortic valve calcification. Moderate restriction of the aortic valve. Pulmonic Valve The pulmonic valve is not well visualized. Great Vessels The aortic root is not well visualized. Pericardium/Pleural No pericardial effusion. MMode/2D Measurements & Calculations LVIDd: 3.9 cm IVSd: 1.1 cm Ao root diam: 3.7 cm LVIDs: 2.5 cm LVPWd: 1.1 cm RVDd: 2.8 cm FS: 37.2 % LAV(MOD-bp): 45.5 ml LA A4 area: 15.7 cm2 LA dimension(2D): 3.3 cm LAV(MOD-bp) Indexed: 31.5 ml/m2 LAV(MOD-sp2): 43.3 ml LAV(MOD-sp4): 43.1 ml RA A4 area: 12.4 cm2 ECHO/ONC Echo, Limited Study Interpretation Summary Mild concentric left ventricular hypertrophy. The global longitudinal strain = -14.9% (borderline). The left ventricular ejection fraction is 60 %. The left atrium is mildly enlarged. There is Mild focal anterior mitral annular calcification. There is Mild focal posterior mitral annular calcification. Moderate diffuse aortic valve calcification. Moderate restriction of the aortic valve. Ordering Physician: Sang Smith Referring Physician: Sergio Mari Performed By: Shalini Haro, RDCS, RVT
== END | disposition home or self-care (01) ==
LOC: CVS 07:21
PROVIDERS: PCP Family Medicine; Referring Provider Internal Medicine Medical Oncology; Visit Provider Internal Medicine Medical Oncology
DX: Z79.899 Other long term (current) drug therapy (principal)
CPT/HCPCS: 93308; 93356

== ENCOUNTER → 2022-11-12 | Outpatient (CLI) | payer MEDICARE, OTHER, SELFPAY ==
--- NOTE | 2022-11-12 08:17 | ECHOLONC_ITS ---
Reason For Study: Chemotherapy Procedure This was a limited 2D transthoracic echocardiogram. Myocardial strain analysis was performed in this exam to aid in the assessment of cardiac function. Exam performed in department. Left Ventricle Normal LV size. Left ventricular systolic function is normal. The estimated ejection fraction is 65 %. No regional wall motion abnormalities noted. Right Ventricle Normal RV size. Normal systolic function. Atria Normal left atrium. Normal right atrium. Mitral Valve Normal mitral valve. Tricuspid Valve Normal tricuspid valve. Mild (1+) tricuspid valve insufficiency. Pulmonary artery systolic pressure is 30 mmHg. Aortic Valve Trisinus/trileaflet aortic valve. Moderate focal aortic valve calcification. Peak aortic valve gradient 31 mmHg. Mean aortic valve gradient 16 mmHg. Pulmonic Valve Normal pulmonic valve. Great Vessels Normal aortic root. The pulmonary artery is normal size. Normal inferior vena cava. Pericardium/Pleural No pericardial effusion. MMode/2D Measurements & Calculations LVIDd: 4.2 cm IVSd: 1.1 cm LAV(MOD-sp4): 40.2 ml LVIDs: 2.9 cm LVPWd: 0.95 cm FS: 31.3 % LVAd ap4: 21.4 cm2 SV(MOD-sp4): 29.8 ml SV(sp4-el): 32.4 ml LVLd ap4: 6.7 cm EDV(MOD-sp4): 56.7 ml EDV(sp4-el): 58.3 ml LVAs ap4: 12.7 cm2 LVLs ap4: 5.3 cm ESV(MOD-sp4): 26.9 ml ESV(sp4-el): 25.8 ml EF(MOD-sp4): 52.5 % EF(sp4-el): 55.7 % LA A4 area: 14.9 cm2 Doppler Measurements & Calculations Lat Peak E' Guillermo: 7.3 cm/sec Med Peak E' Guilelrmo: 5.4 cm/sec Ao V2 max: 280.0 cm/sec Ao max P.4 mmHg Ao V2 mean: 184.2 cm/sec Ao mean P.0 mmHg Ao V2 VTI: 59.7 cm AV (velocity ratio): 0.31 LV V1 max: 75.8 cm/sec TR max guillermo: 251.3 cm/sec LV V1 max P.3 mmHg TR max P.3 mmHg LV V1 mean P.2 mmHg LV V1 mean: 51.8 cm/sec LV V1 VTI: 18.8 cm ECHO/ONC Echo, Limited Study Interpretation Summary Normal LV size. Left ventricular systolic function is normal. The estimated ejection fraction is 65 %. Moderate focal aortic valve calcification. The global longitudinal strain is mildly abnormal. The global longitudinal stra in has improved. The global longitudinal strain = -16% (abnormal). Ordering Physician: Sang Smith Referring Physician: Sang Smith Performed By: Andrzej Doshi RCS
== END | disposition home or self-care (01) ==
LOC: CVS 08:17
PROVIDERS: PCP Family Medicine; Referring Provider Internal Medicine Medical Oncology; Visit Provider Internal Medicine Medical Oncology
DX: Z51.12 Encounter for antineoplastic immunotherapy (principal); C50.912 Malignant neoplasm of unspecified site of left female breast; I10 Essential (primary) hypertension; Z79.899 Other long term (current) drug therapy
CPT/HCPCS: 93308; 93356

== ENCOUNTER → 2023-01-28 | Outpatient (CLI) | payer MEDICARE, OTHER, SELFPAY ==
--- NOTE | 2023-01-28 12:29 | ECHOLONC_ITS ---
Reason For Study: High Risk Chemo Procedure This was a limited 2D transthoracic echocardiogram. Myocardial strain analysis was performed in this exam to aid in the assessment of cardiac function. Exam performed in department. Left Ventricle Normal LV size. Left ventricular systolic function is normal. The estimated ejection fraction is 60 %. No regional wall motion abnormalities noted. Right Ventricle Normal RV size. Normal systolic function. Atria Normal left atrium. Normal right atrium. Mitral Valve Mild diffuse mitral valve thickening. Tricuspid Valve Normal tricuspid valve. Aortic Valve Trisinus/trileaflet aortic valve. Moderate focal aortic valve calcification. Peak aortic valve gradient 36 mmHg. Mean aortic valve gradient 19 mmHg. Pulmonic Valve Normal pulmonic valve. Great Vessels Normal aortic root. The pulmonary artery is normal size. Normal inferior vena cava. Pericardium/Pleural No pericardial effusion. MMode/2D Measurements & Calculations LVIDd: 3.8 cm IVSd: 1.2 cm LVOT diam: 2.1 cm LVIDs: 2.5 cm LVPWd: 1.0 cm LVOT area: 3.5 cm2 FS: 34.6 % LVAd ap4: 20.4 cm2 SV(MOD-sp4): 28.1 ml SV(sp4-el): 30.1 ml LVLd ap4: 6.9 cm EDV(MOD-sp4): 50.4 ml EDV(sp4-el): 51.6 ml LVAs ap4: 12.1 cm2 LVLs ap4: 5.8 cm ESV(MOD-sp4): 22.3 ml ESV(sp4-el): 21.5 ml EF(MOD-sp4): 55.7 % EF(sp4-el): 58.3 % Doppler Measurements & Calculations Lat Peak E' Guillermo: 9.2 cm/sec Med Peak E' Guillermo: 4.4 cm/sec Ao V2 max: 301.6 cm/sec Ao max P.4 mmHg Ao V2 mean: 202.8 cm/sec Ao mean P.0 mmHg Ao V2 VTI: 57.9 cm AV (velocity ratio): 0.34 PEACE(I,D): 1.2 cm2 PEACE(V,D): 0.87 cm2 LV V1 max: 76.3 cm/sec MR max guillermo: 656.5 cm/sec SV(LVOT): 67.6 ml LV V1 max P.3 mmHg MR max P.4 mmHg LV V1 mean P.3 mmHg MR mean guillermo: 536.5 cm/sec LV V1 mean: 53.7 cm/sec MR mean P.6 mmHg LV V1 VTI: 19.6 cm MR VTI: 176.3 cm ECHO/ONC Echo, Limited Study Interpretation Summary Normal LV size. Left ventricular systolic function is normal. The estimated ejection fraction is 60 %. Moderate focal aortic valve calcification. Mean aortic valve gradient 19 mmHg. The global longitudinal strain = -16.3% (abnormal). The global longitudinal strain is mildly abnormal. The global longitudinal stra in = -16.3% (abnormal). The prior global longitudinal strain was -16 % . Ordering Physician: Sang Smith Referring Physician: Sergio Mari Performed By: Andrzej Doshi RCS
== END | disposition home or self-care (01) ==
LOC: CVS 12:26
PROVIDERS: PCP Family Medicine; Referring Provider Internal Medicine Medical Oncology; Visit Provider Internal Medicine Medical Oncology
DX: Z79.899 Other long term (current) drug therapy (principal); C77.3 Secondary and unspecified malignant neoplasm of axilla and upper limb lymph nodes; C50.919 Malignant neoplasm of unspecified site of unspecified female breast
CPT/HCPCS: 93308; 93356

== ENCOUNTER → 2023-06-03 | Outpatient (CLI) | payer MEDICARE, OTHER, SELFPAY ==
--- NOTE | 2023-06-03 08:45 | BI_ITS ---
MAMMOGRAPHY - BILATERAL DIAGNOSTIC REASON FOR EXAM: Female, 83 years old. Prior left lumpectomy with chemotherapy and radiation therapy. PERTINENT HISTORY: Personal history of breast cancer. TECHNIQUE: Digital bilateral breast thalia (3D mammographic acquisition) in the CC and MLO projections. 2-D mediolateral oblique (MLO) and craniocaudad (CC) views of both breasts were obtained. CAD: Full Field Digital Mammography with Computer Added Detection was performed. COMPARISON: Comparison is made with prior study dated December 21, 2021 and May 30, 2022. FINDINGS: Breast Composition: The breasts are extremely dense, which lowers the sensitivity of mammography. There are no dominant masses or suspicious calcifications. The patient is status post lumpectomy in the deep upper lateral aspect of the left breast. Stable dense calcification in the upper central portion of the right breast. No other significant abnormalities are identified. BI/DIAG MAMM W/CAD, BILAT IMPRESSION: The patient is status post lumpectomy in the deep axillary region of the left breast. The remainder of the examination is unchanged. One year follow-up recommended. (A) ASSESSMENT CATEGORY: BIRADS Category 2: Benign. A letter regarding these results will be sent to the patient by the facility within 30 days. Approximately 10% of breast cancers are not detected by mammography. A normal mammogram should not delay biopsy of a clinically suspicious abnormality. Electronically Signed: Dejuan Salvador MD at 10:42 EST ,
== END | disposition home or self-care (01) ==
LOC: OPBI 08:45
PROVIDERS: PCP Family Medicine; Referring Provider Student in an Organized Health Care Education/Training Program; Visit Provider Student in an Organized Health Care Education/Training Program
DX: C50.412 Malignant neoplasm of upper-outer quadrant of left female breast (principal); Z17.1 Estrogen receptor negative status [ER-]
CPT/HCPCS: 77062; 77066; G0279

== ENCOUNTER 2024-01-27 11:00 | Outpatient (RCR) | payer MEDICARE, OTHER, SELFPAY ==
--- NOTE | 2024-01-13 15:19 | HP.OTEVAL ---
Patient's Visit Information Visit Information Visit Information: CRISTHIAN RIVERO is a 83 year old F, referred to Occupational Therapy by Dr. Dariel Jerry DO, with a diagnosis of breast cancer, tightness, lymphedema. Date of Evaluation: 01/13/24 Occupational Therapist: JOSE C Georges/Carla, CHT Subjective Subjective: This 83 year old female was seen for OT eval with dx of right shoulder limited ROM. pt states this just started after she moved a concreate statue around in her landscape. Pt states she noticed she was unable to comb her hair with her dominate right hand. Pt states she has also noticed difficulty putting dishes on a shelf. pt would like to gain functional ROM to return to her PLOF. 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 with ADLs by d.c pt will demo a increase in left shoulder flexion by 30* or greater to increase pts ind. with ADLs by d/c Goal:: pt will demo understanding of using ad. eq. as needed to cont. performing ADLs at PATTY level by d.c Rehabilitation General Assessment: Pt currently demo with limited bilateral shoulder flexion limiting pts ind with ADLs and IADLs. Pt demo need for skilled OT services 1-2x week for 4 weeks to improve ROM and strength to return pt to her PLOF. Today therapist ed. pt on AAROM for shoulders, slow soft motion and to avoid painful fast motion. Therapist also ed.pt on keeping items she uses most frequently lower on shelving. Pt demo understanding of ex and agree to POC. Rehabilitation Potential: Good Anticipated Interventions Anticipated Interventions: A/AAROM/PROM, Strengthening, Modalities, Joint Protection/Energy Conservation, Ergonomic Education, Education re assistive Equipment, Education re Diagnosis and Home Program Visit Plan Frequency: 1-2x /Week Duration: 2-4 Weeks TEXT: Thank you for the opportunity to evaluate your patient. For Medicare and Medicare HMO plans, please review the plan of care and approve it. It will need to be FAXED BACK to us at [phone] for Medicare purposes. Please let me know if there are questions or concerns regarding this plan of care. Physician Signature: Date:
== END 2024-01-27 19:00 | disposition home or self-care (01) ==
LOC: OT 11:00
PROVIDERS: PCP Family Medicine; Visit Provider Student in an Organized Health Care Education/Training Program
DX: I89.0 Lymphedema, not elsewhere classified (principal)
CPT/HCPCS: 97110; 97165; 97530

== ENCOUNTER → 2024-02-24 | Outpatient (CLI) | payer MEDICARE, OTHER, SELFPAY ==
[2024-02-24 12:27] LABS: Absolute Lymphocyte Count 1.34 X10^3/uL (0.83-4.51); Absolute Neutrophil Count 10.7 X10^3/uL (2.0-7.7); Basophil# 0.08 X10^3/uL; Basophil% 0.6 % (0-1); Eosinophil# 0.07 X10^3/uL; Eosinophils% 0.5 % (0-5); Hematocrit 42.4 % (37-47); Lymphocyte # 1.34 X10^3/ul (0.83-4.51); Lymphocyte % 9.9 % (19-41); Mean Corpuscular Volume 93.8 fL (81-99); Mean Platelet Vol. 9.7 fl (6.2-12.0); Monocyte# 1.13 X10^3/uL; Monocyte% 8.4 % (0-10); NRBC Flagged by Analyzer 0 % (0-5); Neutrophil # 10.73 X10^3/uL (2.7-7.7); Neutrophil % 79.6 % (47-70); Platelet Count 401 K/mm3 (150-450); RBC Distribution Width CV 13.3 % (11.6-14.6); RBC Distribution Width SD 45.7 fl (35.1-43.9); Red Blood Count 4.52 M/mm3 (4.2-5.4); White Blood Count 13.5 K/mm3 (4.4-11.0)
[2024-02-24 13:24] LABS: ALB/GLOB Ratio 0.9 RATIO (0.9-2.4); AST(SGOT) 16 U/L (15-37); Alanine Aminotransfer ALT/SGPT 24 U/L (13-56); Albumin, Serum 3.4 g/dL (3.2-5.0); Alkaline Phosphatase 136 U/L (45-117); Anion Gap 4 (5-15); BUN 34 mg/dL (7-18); BUN/Creat Ratio 30.1 RATIO (10-20); Calcium,Total 9.1 mg/dL (8.5-10.1); Chloride 103 mmol/L (98-107); Creatinine, Serum 1.13 mg/dL (0.55-1.02); EST Glomerular Filtration Rate 49 mL/min (>60); Est Glom Filt Rate - Afr Amer 59 mL/min (>60); Globulin 3.7 g/dL (2.2-4.2); Glucose 107 mg/dL (74-106); LDH 196 U/L (84-246); Potassium 3.8 mmol/L (3.5-5.1); Protein, Total 7.1 g/dL (6.4-8.2); Sodium Level 138 mmol/L (136-145)
== END | disposition home or self-care (01) ==
LOC: LAB 12:04
PROVIDERS: PCP Family Medicine; Referring Provider Internal Medicine Medical Oncology; Visit Provider Internal Medicine Medical Oncology
DX: C50.912 Malignant neoplasm of unspecified site of left female breast (principal); Z17.1 Estrogen receptor negative status [ER-]
CPT/HCPCS: 36415; 80053; 83615; 85025

== ENCOUNTER → 2024-06-08 | Outpatient (CLI) | payer MEDICARE, OTHER, SELFPAY ==
--- NOTE | 2024-06-08 10:09 | BI_ITS ---
PROCEDURE: SCRN MAMM (CAD)W/SOCORRO BILAT REASON FOR EXAM: F, Age 84 y/o, personal history of breast cancer. TECHNIQUE: Bilateral screening digital breast tomosynthesis with 2D and 3D images. Computer aided detection. COMPARISON: Prior exam(s) dating back to June 03, 2023.. FINDINGS: The breasts are extremely dense which lowers the sensitivity of mammography. The patient is status post lumpectomy in the deep upper lateral aspect of the left breast with resultant postoperative scarring microcalcifications seen in the retroareolar region of the right breast. No suspicious masses, areas of developing architectural distortion, or suspicious calcifications. BI/SCRN MAMM (CAD)W/SOCORRO BILAT IMPRESSION: BI-RADS 2: BENIGN. RECOMMEND ANNUAL MAMMOGRAPHIC SCREENING. Follow-up code: Routine Follow-up The patient will be notified of the results by letter. Reading Location: [place] [id number]
== END | disposition home or self-care (01) ==
LOC: OPBI 10:09
PROVIDERS: PCP Family Medicine; Referring Provider Student in an Organized Health Care Education/Training Program; Visit Provider Student in an Organized Health Care Education/Training Program
DX: Z12.31 Encounter for screening mammogram for malignant neoplasm of breast (principal)
CPT/HCPCS: 77063; 77067

== ENCOUNTER → 2024-12-03 | Outpatient (CLI) | payer MEDICARE, OTHER, SELFPAY ==
[2024-12-03 13:20] LABS: Anion Gap 10 (5-15); BUN 25 mg/dL (4-19); BUN/Creat Ratio 32.5 RATIO (10-20); Calcium,Total 9.9 mg/dL (7.6-11.0); Carbon Dioxide 26.1 mmol/L (21.0-32.0); Chloride 102 mmol/L (98-108); Cholesterol 206 mg/dL (<=200); Glucose 99 mg/dL (70-99); Low Density Lipoprotein Calc. 108 mg/dL; Potassium 4.4 mmol/L (3.3-5.1); Triglycerides 137 mg/dL; Very Low Density Lipoprotein 27 mg/dL (5-40); cholesterol:hdl ratio screen 2.92
== END | disposition home or self-care (01) ==
LOC: MFPLAB 10:58
PROVIDERS: PCP Family Medicine; Visit Provider Family Medicine
DX: Z00.00 Encounter for general adult medical examination without abnormal findings (principal)
CPT/HCPCS: 36415; 80048; 80061